=== PATIENT | male | born 1940 | race Caucasian/White ===

== ENCOUNTER 2016-07-30 08:05 | Outpatient (CLI) | payer MEDICARE, OTHER | END 2016-07-30 08:06 | disposition home or self-care (01) | DX: I42.9 Cardiomyopathy, unspecified (principal); I51.7 Cardiomegaly ==

== ENCOUNTER 2016-08-27 21:08 | Outpatient (CLI) | payer MEDICARE, OTHER | END 2016-08-27 21:09 | disposition critical access hospital (66) | DX: R53.1 Weakness (principal); R47.9 Unspecified speech disturbances; R26.81 Unsteadiness on feet | CPT/HCPCS: A0425; A0429 ==

== ENCOUNTER 2016-08-27 21:23 | Emergency (ER) | payer MEDICARE, OTHER ==
--- NOTE | 2016-08-27 21:23 | ED Physician Documentation ---
PD HPI FOCAL NEURO - Stated complaint Stated Complaint: POSS STROKE - History obtained from History obtained from: Patient, Family, EMS - History of Present Illness Timing - onset: Enter time (20:45), Today Timing - details: Abrupt onset Severity of deficit: Moderate Associated symptoms: No: Headache, Nausea / vomiting, Seizure, Syncope, Fall, Head injury, Chest pain, Neck pain, Back pain, Fever Contributing factors: negative: Anticoagulated, Vascular dz, Atrial fibrillation Baseline status: positive: A&OX3, ambulatory, indep Similar symptoms before: Has not had sx before Recently seen: Not recently seen - Additional information Additional information: At approximately 8:45 PM tonight, patient came back into his house from the garage and told his he was having difficulty walking. She found that he was very unsteady on his feet and had to be helped to a chair. She also noted his speech seemed garbled. Approximately 5-10 minutes earlier, he had gone into the garage without any such problems (per both his patient and his , who saw him leave the house to go into the garage). Medics report that patient was indeed very unsteady and that he needed significant assistance just getting up and onto the stretcher. Review of Systems Constitutional: reports: Reviewed and negative Eyes: reports: Reviewed and negative Ears: reports: Reviewed and negative Nose: reports: Reviewed and negative Throat: reports: Reviewed and negative Cardiac: reports: Reviewed and negative Respiratory: reports: Reviewed and negative GI: reports: Reviewed and negative : reports: Reviewed and negative Skin: reports: Reviewed and negative Musculoskeletal: reports: Reviewed and negative Neurologic: reports: Generalized weakness, Difficulty speaking. denies: Focal weakness, Numbness, Near syncope, Syncope, Confused, Headache, Head injury, LOC PD PAST MEDICAL HISTORY - Past Medical History Past Medical History: Yes Other Past Medical History: throat cancer - Present Medications Home Medications: Ambulatory Orders Medication Instructions Recorded Confirmed Aspirin 81 mg ORAL DAILY 08/27/16 08/27/16 Cholecalciferol (Vitamin D3) 1,000 units ORAL DAILY 08/27/16 08/27/16 [Vitamin D3] - Allergies Allergies/Adverse Reactions: Allergies Allergy/AdvReac Type Severity Reaction Status Date / Time Penicillins Allergy Unknown Verified 08/27/16 21:28 - Living Situation Living Situation: reports: With spouse/s.o. Living Arrangement: reports: At home - Social History Does the pt smoke?: No PD ED PE NORMAL - Vitals Vital signs reviewed: Yes - General General: Alert and oriented X 3, No acute distress, Well developed/nourished - HEENT HEENT: PERRL, EOMI, Moist mucous membranes - Neck Neck: Supple, no meningeal sign - Cardiac Cardiac: RRR, No murmur, No gallop, No rub - Respiratory Respiratory: No respiratory distress, Clear bilaterally - Abdomen Abdomen: Soft, Non tender - Derm Derm: Normal color, Warm and dry - Extremities Extremities: No edema - Neuro Neuro: Alert and oriented X 3, No sensory deficit, Other (visual mattson: right upper field cut/deficit. mild ataxia (difficulty with right hand [id number]) . 4/5 RUE strength (RUE drift). mild expressive aphasia (cannot describe anything about the picture (NIHSS scale), even after I prompt him with the example of "the sink is overflowing". He also has difficulty in naming most of the objects individually pictured, such as calling the hammock a "picture swing " and cannot name most of the other objects). ) GCS Score: 15 NIHSS - Time Time: 21:43 - Level of Consciousness Level of consciousness: (0) Alert, Keenly responsive LOC Questions: (0) Answers both Q's correct LOC Commands: (0) Performs both correctly - Gaze Best Gaze: (0) Normal - Visual Visual: (1) Partial hemianopia - Facial Palsy Facial Palsy: (0) Normal, symmetrical movement - Motor Arms (both separate) Motor Arm (right): (1) Drift Motor Arm (left): (0) No drift - Motor Legs (both separate) Motor Leg (right): (0) No drift Motor Leg (left): (0) No drift - Limb Ataxia Limb Ataxia: (1) Present in 1 limb - Sensory Sensory: (0) Normal - Best Language Best Language: (1) [id number] - Dysarthria Dysarthria: (0) Normal - Extinction and Inattention (formally neg Extinction and inattention: (0) No abnormality - Total Score/Results Total Score/Result: 4 Results - Vitals Vitals: Vital Signs - 24 hr 08/27/16 08/27/16 08/27/16 21:23 21:55 22:08 Temperature 36 C L Heart Rate 84 85 83 Respiratory 20 20 20 Rate Blood Pressure 185/115 H 189/93 H 182/90 H O2 Saturation 98 98 97 08/27/16 08/27/16 08/27/16 22:35 22:38 22:51 Temperature Heart Rate 80 71 72 Respiratory 18 20 20 Rate Blood Pressure 191/84 H 160/79 H 175/84 H O2 Saturation 96 96 95 Oxygen O2 Source Room air - Labs Labs: Laboratory Tests 08/27/16 08/27/16 08/27/16 21:24 21:24 21:24 WBC 8.8 RBC 4.30 L Hgb 12.7 L Hct 39.1 L MCV 91.0 MCH 29.5 MCHC 32.4 RDW 14.4 Plt Count 248 MPV 8.0 Neut # 6.0 Lymph # 1.9 [place] # 0.7 Eos # 0.1 Baso # 0.0 Absolute Nucleated RBC 0.00 Nucleated RBCs 0.0 PT 10.7 INR 0.9 APTT 25.4 Sodium 140 Potassium 3.7 Chloride 103 Carbon Dioxide 30 Anion Gap 7.0 BUN 25 H Creatinine 1.0 Estimated GFR (MDRD) 73 L Glucose 118 H Calcium 9.6 Troponin I 08/27/16 21:24 WBC RBC Hgb Hct MCV MCH MCHC RDW Plt Count MPV Neut # Lymph # [place] # Eos # Baso # Absolute Nucleated RBC Nucleated RBCs PT INR APTT Sodium Potassium Chloride Carbon Dioxide Anion Gap BUN Creatinine Estimated GFR (MDRD) Glucose Calcium Troponin I 0.04 - Rads (name of study) CT head Radiology: Prelim report reviewed, See rad report PD MEDICAL DECISION MAKING - ED course Complexity details: reviewed results, re-evaluated patient, considered differential, d/w patient, d/w family, d/w sfdc consultant (D/W Dr. Wang ( neurology, [facility]); recommends medication to lower BP (I orderded labetalol), and agrees with tPA. She was consulted over the phone and subsequently she evaluated patient via telestroke system. ) - Critical Care Time(min): 45 Time Includes: Direct patient care, Review records, Reassess patient, Document care, Coordinate care, See progress note Data interpretation: See progress note Procedures included in critical care time: See progress note Procedures excluded from critical care time: See progress note - TPA CVA checklist Inclusion crititeria: positive: Sig neuro deficit, CT no bleed, Onset know < 4.5 hr Absolute contraindications: negative: SBP>185 DBP>110 s/p tx, CT shows bleed, CT shows major est CVA, Platelets <100K, PTT > 40, INR >1.7, Known bleeding disorder, Surgery/trauma < 15 days, Seizure at onset, Internal bleed < 22 days, Brain/spine surg < 3 m, Head trauma < 3 m, CVA < 3 months, Any hx ICH, Any hx brain aneurysm, Any hx brain AVM, Any hx brain tumor, Suspect SAH Relative contraindications: negative: Too severe (NIHSS>22), Too mild, Rapid improvement, Glusose <50 >400, Life expectancy < 1 yr, Severe comorbid illness, Bacterial endocarditis, Severe hepatic dz, Severe renal dz, Hemorrhagic eye condition, Septic thrombophlebitis, Infected AV shunt, On coumadin, Advanced age , Left heart thrombus Departure - Departure Disposition: 02 Transfer Acute Care Hosp Clinical Impression: Cerebrovascular accident (CVA) Qualifiers: CVA mechanism: unspecified Qualified Code(s): I63.9 - Cerebral infarction, unspecified Condition: Stable Discharge Date/Time: 08/27/16 23:44
[2016-08-27] MEDS ORDERED: ALTEPLASE IV STA (22:00)
[2016-08-27] MEDS ORDERED: ALTEPLASE 100 MG VIAL IV ONE (22:00)
[2016-08-27] MEDS ORDERED: WATER FOR INJECTION STERILE IV STA (22:00)
[2016-08-27] MEDS ORDERED: ALTEPLASE 100 MG in WATER FOR INJECTION,STERILE 100 ML IV STA (22:00)
[2016-08-27] MEDS ORDERED: ALTEPLASE 100 MG VIAL ONE (22:03)
--- NOTE | 2016-08-27 22:03 | CT Preliminary Report ---
Exam: CT Head W/O Stroke Protocol IMPRESSION: Generalized age-related cortical atrophic changes without evidence of acute intracranial abnormality. RADIA The above findings were discussed with Dr. Lambert by Dr. Yolanda Lo at 21:57 hrs on 08/27/16. SITE ID: [id number]
--- NOTE | 2016-08-27 22:06 | CT Report ---
EXAM: CT HEAD EXAM DATE: 08/27/2016 09:51 PM. CLINICAL HISTORY: Possible stroke.Ataxia, right sided drift, speech difficulties COMPARISON: None. TECHNIQUE: Multiaxial CT images were obtained from the foramen magnum to the vertex. IV contrast: Non e. Reformats: Coronal. In accordance with CT protocol optimization, one or more of the following dose reduction techniques w ere utilized for this exam: automated exposure control, adjustment of mA and/or KV based on patient s ize, or use of iterative reconstructive technique. FINDINGS: Parenchyma: No intraparenchymal hemorrhage. No evidence of mass, midline shift, or CT findings of acu te infarction. Owusu-white differentiation is distinct. Extraaxial Spaces: Normal for age. No subdural or epidural collections identified. Ventricles: The ventricles and cortical sulci are enlarged, consistent with age-related tissue loss. Sinuses: Mild fluid in the right mastoid air cells. Mild right maxillary sinus mucosal thickening, no t completely imaged. Mild bilateral frontal sinus mucosal thickening. Bones: No evidence of fracture or calvarial defect. Other: Diffuse chronic microangiopathic white matter changes are evident. IMPRESSION: Generalized age-related cortical atrophic changes without evidence of acute intracranial abnormality. RADIA The above findings were discussed with Dr. Lambert by Dr. Yolanda Lo at 21:57 hrs on 08/27/16. Referring Provider Line: [phone] SITE ID: [id number]
[2016-08-27 22:11] LABS: BASOPHILS % (AUTO) 0.4 %; EOSINOPHILS # (AUTO) 0.1 10^3/uL (0.0-0.7); EOSINOPHILS % (AUTO) 1.6 %; HCT - HEMATOCRIT 39.1 % (42.0-52.0); HGB - HEMOGLOBIN 12.7 g/dL (14.0-18.0); LYMPHOCYTES # (AUTO) 1.9 10^3/uL (1.5-3.5); LYMPHOCYTES % (AUTO) 21.3 %; MEAN CORPUSCULAR HEMOGLOBIN 29.5 pg (27.0-31.0); MEAN CORPUSCULAR HGB CONC 32.4 g/dL (32.0-36.0); MONOCYTES # (AUTO) 0.7 10^3/uL (0.0-1.0); MONOCYTES % (AUTO) 7.9 %; NEUTROPHILS % (AUTO) 68.8 %; RED CELL DISTRIBUTION WIDTH 14.4 % (12.0-15.0); UNCORRECTED WHITE BLOOD COUNT 8.8 x10^3/uL; WHITE BLOOD COUNT 8.8 x10^3/uL (4.8-10.8)
[2016-08-27 22:14] LABS: CALCIUM 9.6 mg/dL (8.5-10.3); POTASSIUM 3.7 mmol/L (3.5-5.0)
[2016-08-27 22:17] LABS: INR 0.9 (0.8-1.2); PT - PROTHROMBIN TIME 10.7 secs (9.9-12.6)
[2016-08-27] MEDS ORDERED: LABETALOL 20 MG/4 ML SYRINGE IVP ONE (22:23)
[2016-08-27] MEDS ORDERED: LABETALOL 20 MG/4 ML SYRINGE IVP STA (22:23)
[2016-08-27 22:24] LABS: PARTIAL THROMBOPLASTIN TIME 25.4 secs (24.9-33.3)
[2016-08-27 22:52] VITALS: BP 175/84
== END 2016-08-27 23:44 | disposition short-term general hospital (02) ==
LOC: EDUNIT# → ED 21:23
DX: I63.9 Cerebral infarction, unspecified (principal); R29.704 NIHSS score 4; Z79.82 Long term (current) use of aspirin
CPT/HCPCS: 36415; 70450; 80048; 84484; 85025; 85610; 85730; 93005; 93010; 96374; 99285; 99291; J2997; 99284

== ENCOUNTER 2016-09-18 09:54 | Outpatient (CLI) | payer MEDICARE, OTHER | END 2016-09-18 09:55 | disposition critical access hospital (66) | LOC: EMS 09:54 | PROVIDERS: ATTEND Surgery | DX: R41.82 Altered mental status, unspecified (principal) | CPT/HCPCS: A0425; A0429 ==

== ENCOUNTER 2016-09-18 10:14 | Emergency (ER) | payer MEDICARE, OTHER ==
--- NOTE | 2016-09-18 10:37 | ED Physician Documentation ---
History of Present Illness - Stated complaint Stated Complaint: POSS STROKE - Chief complaint Chief Complaint: Neuro - Additonal information Additional information: hx from pt 76 male had a CVA 08/27 txed with TPA and trasnferred to [facility] was doing well and only residual effect was blurred vision was in his usual health this AM - except did not eat in prep for lab draw went to PT, checked in 0815, rode the bike for 15 min, when he went to move on to the next exercise at 0830 it became apparent that he was upset and confused and could not understand how to do the therapy, was taken down from PT to PMD office where he was noted to have a right facial droop and some dec reflexes on the LLE pt denies REYES CP palp no on blood thinners ,was going to start pradaxa tomorrow 4 wk s/p TPA per ssx are much imporved from when he was at PMD office Review of Systems Constitutional: denies: Fever, Chills Eyes: denies: Loss of vision Ears: denies: Loss of hearing, Ear pain Cardiac: denies: Chest pain / pressure, Palpitations GI: denies: Abdominal Pain, Nausea, Vomiting Neurologic: reports: Focal weakness. denies: Generalized weakness, Numbness, Difficulty speaking, Seizure, Headache Endocrine: denies: Easy bruising / bleeding Immunocompromised: denies: Immunocompromised PD PAST MEDICAL HISTORY - Past Medical History Past Medical History: Yes GI: Other - Past Surgical History Past Surgical History: Yes - Present Medications Home Medications: Ambulatory Orders Medication Instructions Recorded Confirmed Aspirin 81 mg ORAL DAILY 08/27/16 09/18/16 Cholecalciferol (Vitamin D3) 1,000 units ORAL DAILY 08/27/16 09/18/16 [Vitamin D3] Atorvastatin Calcium 40 mg PO DAILY 09/18/16 09/18/16 Metoprolol Tartrate 12.5 ng PO BID 09/18/16 09/18/16 - Allergies Allergies/Adverse Reactions: Allergies Allergy/AdvReac Type Severity Reaction Status Date / Time Penicillins Allergy Unknown Verified 08/27/16 21:28 - Social History Does the pt smoke?: No Smoking Status: Never smoker Does the pt drink ETOH?: No Does the pt have substance abuse?: No - Immunizations Immunizations are current?: Yes - POLST Patient has POLST: Yes PD ED PE NORMAL - Vitals Vital signs reviewed: Yes - General General: Alert and oriented X 3 - HEENT HEENT: PERRL, EOMI - Neck Neck: Supple, no meningeal sign - Cardiac Cardiac: RRR - Respiratory Respiratory: No respiratory distress, Clear bilaterally - Abdomen Abdomen: Soft, Non tender - Neuro Neuro: Alert and oriented X 3, No sensory deficit, Normal speech. No: sales assistant entertainment and media 2-12 intact (slight drop right mouth), No motor deficit (facial) - Psych Psych: Other (frustrated) Results - Vitals Vitals: Vital Signs - 24 hr 09/18/16 09/18/16 10:16 10:58 Temperature 36.2 C L Heart Rate 54 L 51 L Respiratory 18 16 Rate Blood Pressure 143/96 H 156/51 H O2 Saturation 97 100 Oxygen O2 Source Room air - EKG (time done) 1053 Rate: Rate (enter#) (50) Rhythm: NSR [place]: Normal Intervals: Normal CO Ischemia: Non specific changes - Labs Labs: Laboratory Tests 09/18/16 09/18/16 09/18/16 10:22 10:22 10:22 WBC 5.9 RBC 4.57 L Hgb 13.7 L Hct 40.4 L MCV 88.5 MCH 30.0 MCHC 33.9 RDW 13.8 Plt Count 205 MPV 7.8 Neut # 3.9 Lymph # 1.3 L [place] # 0.5 Eos # 0.2 Baso # 0.0 Absolute Nucleated RBC 0.00 Nucleated RBCs 0.0 PT 12.0 INR 1.1 Sodium 138 Potassium 4.3 Chloride 101 Carbon Dioxide 29 Anion Gap 8.0 BUN 19 Creatinine 1.2 Estimated GFR (MDRD) 59 L Glucose 105 H Calcium 9.8 - Rads (name of study) [facility] Radiology: See rad report (no acute) PD MEDICAL DECISION MAKING - ED course ED course: recurrent CVA sx within a month of TPA now clearing spont d/w neuro at [facility] - pt did have a L occipital temporal CVA in August, he was found to have int a fib while at [facility], he had echo and vessel imaging done, per neuro if his sx are clearing and CT does not show a bleed or other acute process, pt can start pradaxa and be discharged Departure - Departure Disposition: 01 Home, Self Care Clinical Impression: TIA (transient ischemic attack) Qualifiers: Transient cerebral ischemia type: unspecified Qualified Code(s): G45.9 - Transient cerebral ischemic attack, unspecified Condition: Good Instructions: ED Transient Ischemic Attack, Dabigatran oral capsules Follow-Up: Leslie Bird PA-C [Primary Care Provider] - Comments: Thankfully the symptoms that you had this morning are much improved and the CT scan does not show any new problems I spoke with your neurologist at [facility] and he recommends that you start the pradaxa today but that since you have already had an extensive work up for the causes of strokes, you do not need to be admitted to the hospital again. Please follow up with your PMD for a recheck next week and your neruology team as planned Return if worse in any way. Please carefully read the information I provided about being on pradaxa Also please follow up with your PMD about your blood pressure - it was high today Discharge Date/Time: 09/18/16 11:20 NIHSS - Time Time: 10:20 - Level of Consciousness Level of consciousness: (0) Alert, Keenly responsive LOC Questions: (0) Answers both Q's correct LOC Commands: (0) Performs both correctly - Gaze Best Gaze: (0) Normal - Visual Visual: (0) No loss - Facial Palsy Facial Palsy: (1) Minor paralysis - Motor Arms (both separate) Motor Arm (right): (0) No drift Motor Arm (left): (0) No drift - Motor Legs (both separate) Motor Leg (right): (0) No drift Motor Leg (left): (0) No drift - Limb Ataxia Limb Ataxia: (0) Absent - Sensory Sensory: (0) Normal - Best Language Best Language: (0) No aphasia - Dysarthria Dysarthria: (0) Normal - Extinction and Inattention (formally neg Extinction and inattention: (0) No abnormality - Total Score/Results Total Score/Result: 1
[2016-09-18 10:51] LABS: BASOPHILS % (AUTO) 0.7 %; EOSINOPHILS # (AUTO) 0.2 10^3/uL (0.0-0.7); EOSINOPHILS % (AUTO) 3.6 %; HCT - HEMATOCRIT 40.4 % (42.0-52.0); HGB - HEMOGLOBIN 13.7 g/dL (14.0-18.0); LYMPHOCYTES # (AUTO) 1.3 10^3/uL (1.5-3.5); MEAN CORPUSCULAR HGB CONC 33.9 g/dL (32.0-36.0); MEAN CORPUSCULAR VOLUME 88.5 fL (80.0-94.0); MEAN PLATELET VOLUME 7.8 fL (7.4-11.4); MONOCYTES # (AUTO) 0.5 10^3/uL (0.0-1.0); MONOCYTES % (AUTO) 7.9 %; NEUTROPHILS # (AUTO) 3.9 10^3/uL (1.5-6.6); NEUTROPHILS % (AUTO) 65.8 %; RED BLOOD COUNT 4.57 10^6/uL (4.70-6.10); RED CELL DISTRIBUTION WIDTH 13.8 % (12.0-15.0); UNCORRECTED WHITE BLOOD COUNT 5.9 x10^3/uL; WHITE BLOOD COUNT 5.9 x10^3/uL (4.8-10.8)
[2016-09-18 10:52] LABS: CALCIUM 9.8 mg/dL (8.5-10.3); CREATININE 1.2 mg/dL (0.6-1.2); POTASSIUM 4.3 mmol/L (3.5-5.0)
[2016-09-18 11:00] VITALS: BP 156/51
[2016-09-18 11:05] LABS: INR 1.1 (0.8-1.2)
--- NOTE | 2016-09-18 11:06 | CT Report ---
EXAM: CT HEAD EXAM DATE: 09/18/2016 10:41 AM. CLINICAL HISTORY: Right facial droop 0830. Previous infarction by history. COMPARISON: 08/27/2016. TECHNIQUE: Multiaxial CT images were obtained from the foramen magnum to the vertex. IV contrast: Non e. Reformats: Coronal. In accordance with CT protocol optimization, one or more of the following dose reduction techniques w ere utilized for this exam: automated exposure control, adjustment of mA and/or KV based on patient s ize, or use of iterative reconstructive technique. FINDINGS: Parenchyma: No intraparenchymal hemorrhage. No evidence of mass, midline shift, or CT findings of acu te infarction. Subtle hypoattenuation in left occipital lobe best seen on axial image 12 compatible w ith subacute lesion. Owusu-white differentiation is distinct. Extraaxial Spaces: Normal for age. No subdural or epidural collections. Ventricles: The ventricles and cortical sulci are enlarged, consistent with age-related tissue loss. Sinuses: Small opacified right maxillary sinus similar to previous exam. Otherwise unremarkable. Bones: Unremarkable. Other: Mild chronic microangiopathic white matter changes. Calcifications of intracranial carotid art eries. IMPRESSION: Chronic findings, subacute left occipital infarction. No acute disease. RADIA The call report notification system was initiated by Dr. Vikram Mayes at 10:56 hrs on 09/18/16. The above findings were discussed with Dr. Francisco by Dr. Vikram Mayes at 11:02 hrs on 09/18/16. Referring Provider Line: [phone] SITE ID: [id number]
[2016-09-18] MEDS ORDERED: DABIGATRAN 75 MG CAPSULE PO STA (11:09)
== END 2016-09-18 11:20 | disposition home or self-care (01) ==
LOC: EDUNIT# → ED 10:14
DX: G45.9 Transient cerebral ischemic attack, unspecified (principal); Z86.73 Personal history of transient ischemic attack (TIA), and cerebral infarction without residual deficits
CPT/HCPCS: 36415; 70450; 80048; 85025; 85610; 93005; 93010; 99284; A9270

== ENCOUNTER 2016-11-15 02:06 | Outpatient (CLI) | payer MEDICARE, OTHER | END 2016-11-15 02:07 | disposition EMS.NT | LOC: EMS 02:06 | PROVIDERS: ATTEND Surgery | DX: Z03.89 Encounter for observation for other suspected diseases and conditions ruled out (principal) ==

== ENCOUNTER 2016-11-19 09:30 | Outpatient (CLI) | payer MEDICARE, OTHER | END 2016-11-19 09:31 | disposition home or self-care (01) | LOC: DI 09:30 | PROVIDERS: ATTEND Physician Assistant Medical | DX: I48.0 Paroxysmal atrial fibrillation (principal); I51.7 Cardiomegaly; I42.9 Cardiomyopathy, unspecified; I10 Essential (primary) hypertension; E78.5 Hyperlipidemia, unspecified | CPT/HCPCS: 93306 ==

== ENCOUNTER 2017-02-16 08:00 | Outpatient (CLI) | payer MEDICARE, OTHER | END 2017-02-16 08:01 | disposition home or self-care (01) | LOC: LAB.WCP 08:00 | PROVIDERS: ATTEND Physician Assistant Medical | DX: T14.8XXA Other injury of unspecified body region, initial encounter (principal) | CPT/HCPCS: 87070; 87205 ==

== ENCOUNTER 2017-02-26 08:00 | Outpatient (CLI) | payer MEDICARE, OTHER ==
[2017-02-26 12:59] LABS: BASOPHILS % (AUTO) 0.5 %; EOSINOPHILS # (AUTO) 0.2 10^3/uL (0.0-0.7); EOSINOPHILS % (AUTO) 3.2 %; HCT - HEMATOCRIT 36.2 % (42.0-52.0); HGB - HEMOGLOBIN 12.1 g/dL (14.0-18.0); LYMPHOCYTES # (AUTO) 1.5 10^3/uL (1.5-3.5); MEAN CORPUSCULAR HEMOGLOBIN 29.7 pg (27.0-31.0); MEAN CORPUSCULAR HGB CONC 33.5 g/dL (32.0-36.0); MEAN CORPUSCULAR VOLUME 88.7 fL (80.0-94.0); MEAN PLATELET VOLUME 7.3 fL (7.4-11.4); MONOCYTES # (AUTO) 0.4 10^3/uL (0.0-1.0); MONOCYTES % (AUTO) 7.3 %; NEUTROPHILS # (AUTO) 3.6 10^3/uL (1.5-6.6); RED BLOOD COUNT 4.08 10^6/uL (4.70-6.10); RED CELL DISTRIBUTION WIDTH 14.2 % (12.0-15.0); UNCORRECTED WHITE BLOOD COUNT 5.7 x10^3/uL; WHITE BLOOD COUNT 5.7 x10^3/uL (4.8-10.8)
[2017-02-26 13:33] LABS: ALBUMIN/GLOBULIN RATIO 1.2 (1.0-2.2); BILIRUBIN,TOTAL 0.5 mg/dL (0.2-1.0); BUN - BLOOD UREA NITROGEN 21 mg/dL (6-20); CALCIUM 9.5 mg/dL (8.5-10.3); CARBON DIOXIDE - CO2 30 mmol/L (21-32); CHLORIDE 101 mmol/L (101-111); CHOL/HDL RATIO 2.2 (<5.0); CHOLESTEROL 141 mg/dL; GFR - MDRD 73 (>89); GLUCOSE 89 mg/dL (70-100); HDL CHOLESTEROL 64 mg/dL; POTASSIUM 4.5 mmol/L (3.5-5.0); SODIUM 137 mmol/L (135-145); TOTAL PROTEIN 7.4 g/dL (6.7-8.2); TRIGLYCERIDES 62 mg/dL; VLDL CHOLESTEROL 12 mg/dL
== END 2017-02-26 08:01 | disposition home or self-care (01) ==
LOC: LAB.WCP 08:00
PROVIDERS: ATTEND Internal Medicine Cardiovascular Disease
DX: I48.0 Paroxysmal atrial fibrillation (principal); I10 Essential (primary) hypertension; Z86.73 Personal history of transient ischemic attack (TIA), and cerebral infarction without residual deficits; Z79.01 Long term (current) use of anticoagulants; E78.5 Hyperlipidemia, unspecified; I77.9 Disorder of arteries and arterioles, unspecified; I49.3 Ventricular premature depolarization
CPT/HCPCS: 36415; 80053; 80061; 83735; 85025

== ENCOUNTER 2017-04-27 13:13 | Outpatient (CLI) | payer MEDICARE, OTHER ==
[2017-04-27 19:01] LABS: BASOPHILS % (AUTO) 0.8 %; EOSINOPHILS # (AUTO) 0.1 10^3/uL (0.0-0.7); EOSINOPHILS % (AUTO) 2.3 %; HGB - HEMOGLOBIN 12.3 g/dL (14.0-18.0); LYMPHOCYTES # (AUTO) 1.4 10^3/uL (1.5-3.5); LYMPHOCYTES % (AUTO) 23.6 %; MEAN CORPUSCULAR HEMOGLOBIN 29.5 pg (27.0-31.0); MEAN CORPUSCULAR VOLUME 89.7 fL (80.0-94.0); MEAN PLATELET VOLUME 7.8 fL (7.4-11.4); MONOCYTES # (AUTO) 0.5 10^3/uL (0.0-1.0); MONOCYTES % (AUTO) 7.7 %; NEUTROPHILS # (AUTO) 3.9 10^3/uL (1.5-6.6); NEUTROPHILS % (AUTO) 65.6 %; PLT - PLATELET COUNT 281 10^3/uL (130-450); RED BLOOD COUNT 4.16 10^6/uL (4.70-6.10); RED CELL DISTRIBUTION WIDTH 14.1 % (12.0-15.0); WHITE BLOOD COUNT 5.9 x10^3/uL (4.8-10.8)
== END 2017-04-27 13:14 | disposition home or self-care (01) ==
LOC: LAB.WCP 13:13
PROVIDERS: ATTEND Physician Assistant Medical
DX: E03.9 Hypothyroidism, unspecified (principal); D64.9 Anemia, unspecified
CPT/HCPCS: 36415; 84443; 85025

== ENCOUNTER 2017-05-07 08:11 | Outpatient (CLI) | payer MEDICARE, OTHER | END 2017-05-07 08:12 | disposition critical access hospital (66) | LOC: EMS 08:11 | PROVIDERS: ATTEND Surgery | DX: R42 Dizziness and giddiness (principal); R51 Headache; R53.1 Weakness | CPT/HCPCS: A0425; A0429 ==

== ENCOUNTER 2017-05-07 08:28 | Emergency (ER) | payer MEDICARE, OTHER ==
[2017-05-07] MEDS ORDERED: SODIUM CHLORIDE 0.9% 1,000 ML IV ONE (08:41)
[2017-05-07 08:58] LABS: BASOPHILS % (AUTO) 0.8 %; EOSINOPHILS # (AUTO) 0.2 10^3/uL (0.0-0.7); EOSINOPHILS % (AUTO) 3.8 %; HGB - HEMOGLOBIN 11.6 g/dL (14.0-18.0); LYMPHOCYTES # (AUTO) 1.2 10^3/uL (1.5-3.5); LYMPHOCYTES % (AUTO) 23.2 %; MEAN CORPUSCULAR HEMOGLOBIN 29.8 pg (27.0-31.0); MEAN CORPUSCULAR HGB CONC 33.4 g/dL (32.0-36.0); MEAN CORPUSCULAR VOLUME 89.1 fL (80.0-94.0); MONOCYTES # (AUTO) 0.4 10^3/uL (0.0-1.0); MONOCYTES % (AUTO) 8.4 %; NEUTROPHILS # (AUTO) 3.4 10^3/uL (1.5-6.6); NEUTROPHILS % (AUTO) 63.8 %; PLT - PLATELET COUNT 214 10^3/uL (130-450); RED BLOOD COUNT 3.89 10^6/uL (4.70-6.10); RED CELL DISTRIBUTION WIDTH 14.2 % (12.0-15.0); WHITE BLOOD COUNT 5.4 x10^3/uL (4.8-10.8)
--- NOTE | 2017-05-07 09:07 | ED Physician Documentation ---
History of Present Illness - Stated complaint Stated Complaint: WEAK/DIZZY - Chief complaint Chief Complaint: General - History obtained from History obtained from: Patient, Family (Spouse) - History of Present Illness Timing: Today Pain level max: 0 Pain level now: 0 Associated symptoms: Dizzy, lightheaded, headache. 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 He felt lightheaded, and laid down on the floor to avoid falling. He reports headache, and states he "feels terrible." He denies chest pain, shortness of breath, nausea, or vomiting. He has a history of similar dizzy spells since his CVA, but usually they pass in a shorter duration of time. In addition, his past medical history is significant for throat cancer that was diagnosed in 2006, for which he is status post surgery, chemotherapy, and radiation therapy. He is status post carotid endarterectomy. His symptoms this morning were witnessed by his who accompanies him in the emergency department, and who helps provide history. Review of Systems Constitutional: denies: Fever Eyes: denies: Decreased vision Ears: denies: Tinnitus/ringing Nose: denies: Congestion Throat: denies: Sore throat Cardiac: denies: Chest pain / pressure, Palpitations Respiratory: denies: Dyspnea, Cough GI: denies: Abdominal Pain, Nausea, Vomiting : denies: Dysuria Skin: denies: Rash Musculoskeletal: denies: Neck pain, Back pain, Extremity pain Neurologic: reports: Generalized weakness, Focal weakness (Residual right facial droop since CVA.), Headache. denies: Altered mental status, LOC PD PAST MEDICAL HISTORY - Past Medical History Past Medical History: Yes Cardiovascular: Peripheral Vascular Disease, Atrial fibrillation Neuro: CVA GI: Other Other Past Medical History: Throat CA, dx'd 2006. - Past Surgical History Past Surgical History: Yes Cardiovascular: Other (S/P CEA) - Present Medications Home Medications: Ambulatory Orders Medication Instructions Recorded Confirmed Cholecalciferol (Vitamin D3) 1,000 units ORAL DAILY 08/27/16 05/07/17 [Vitamin D3] Atorvastatin Calcium 40 mg PO DAILY 09/18/16 05/07/17 Metoprolol Tartrate 12.5 ng PO BID 09/18/16 05/07/17 Dabigatran Etexilate Mesylate 110 mg PO BID 05/07/17 05/07/17 [Pradaxa] Meclizine [Antivert] 25 mg PO Q6H #10 tablet 05/07/17 - Allergies Allergies/Adverse Reactions: Allergies Allergy/AdvReac Type Severity Reaction Status Date / Time Penicillins Allergy Unknown Verified 08/27/16 21:28 - Living Situation Living Situation: reports: With spouse/s.o. Living Arrangement: reports: At home - Social History Does the pt smoke?: No Smoking Status: Never smoker Does the pt drink ETOH?: No Does the pt have substance abuse?: No - Immunizations Immunizations are current?: Yes - POLST Patient has POLST: Yes PD ED PE NORMAL - Vitals Vital signs reviewed: Yes (Initially hypertensive) - General General: Alert and oriented X 3, Well developed/nourished - HEENT HEENT: Atraumatic, PERRL, EOMI, Pharynx benign - Neck Neck: Supple, no meningeal sign, No bony TTP, No adenopathy, No JVD - Cardiac Cardiac: RRR, No murmur - Respiratory Respiratory: No respiratory distress, Clear bilaterally - Abdomen Abdomen: Soft, Non tender - Back Back: No spinal TTP - Derm Derm: No rash - Extremities Extremities: No edema, No calf tenderness / cord - Neuro Neuro: Alert and oriented X 3, Normal speech, Other (Slight right facial droop. Generalized weakness with no acute motor or sensory deficit of extremities. No drift.) Eye Opening: Spontaneous Motor: Obeys Commands Verbal: Oriented GCS Score: 15 Results - Vitals Vitals: Oxygen O2 Source Room air - EKG (time done) 08:35 Rate: Rate (enter#) (55) Rhythm: NSR [place]: Normal Intervals: Normal [place] QRS: Normal Ischemia: Normal ST segments Compare to prior EKG: Changed from prior EKG (Compared to previous EKG of 2016, LVH with repolarization no longer present.) Computer interpretation: Agree with computer - Labs Labs: Laboratory Tests 05/07/17 05/07/17 05/07/17 08:32 08:40 08:40 WBC 5.4 RBC 3.89 L Hgb 11.6 L Hct 34.7 L MCV 89.1 MCH 29.8 MCHC 33.4 RDW 14.2 Plt Count 214 MPV 7.0 L Neut # 3.4 Lymph # 1.2 L [place] # 0.4 Eos # 0.2 Baso # 0.0 Absolute Nucleated RBC 0.00 Nucleated RBC % 0.0 Sodium 138 Potassium 4.2 Chloride 100 L Carbon Dioxide 28 Anion Gap 10.0 BUN 19 Creatinine 1.0 Estimated GFR (MDRD) 73 L Glucose 106 H POC Whole Bld Glucose 109 H Lactic Acid Calcium 9.4 Total Bilirubin 0.4 AST 20 ALT 15 Alkaline Phosphatase 45 Troponin I Total Protein 7.1 Albumin 3.9 Globulin 3.2 Albumin/Globulin Ratio 1.2 Lipase 35 Urine Color Urine Clarity Urine pH Ur Specific [place] Urine Protein Urine Glucose (UA) Urine Ketones Urine Occult Blood Urine Nitrite Urine Bilirubin Urine Urobilinogen Ur Leukocyte Esterase Ur Microscopic Review Urine Culture Comments 05/07/17 05/07/17 05/07/17 08:40 08:47 10:55 WBC RBC Hgb Hct MCV MCH MCHC RDW Plt Count MPV Neut # Lymph # [place] # Eos # Baso # Absolute Nucleated RBC Nucleated RBC % Sodium Potassium Chloride Carbon Dioxide Anion Gap BUN Creatinine Estimated GFR (MDRD) Glucose POC Whole Bld Glucose Lactic Acid 1.0 Calcium Total Bilirubin AST ALT Alkaline Phosphatase Troponin I < 0.04 Total Protein Albumin Globulin Albumin/Globulin Ratio Lipase Urine Color DARK YELLOW Urine Clarity CLEAR Urine pH 7.0 Ur Specific [place] 1.015 Urine Protein NEGATIVE Urine Glucose (UA) NEGATIVE Urine Ketones NEGATIVE Urine Occult Blood NEGATIVE Urine Nitrite NEGATIVE Urine Bilirubin NEGATIVE Urine Urobilinogen 0.2 (NORMAL) Ur Leukocyte Esterase NEGATIVE Ur Microscopic Review NOT INDICATED Urine Culture Comments NOT INDICATED - Rads (name of study) head CT Radiology: Prelim report reviewed, EMP read contemporaneously, See rad report ( Moderate sized area of encephalomalacia in the left occipital region, consistent with prior infarct. No acute intracranial process.) PD MEDICAL DECISION MAKING - ED course Complexity details: reviewed old records, reviewed results, re-evaluated patient , considered differential, d/w patient, d/w family ED course: The patient's presentation is significant for dizziness, the etiology of which is uncertain at this time. He does not have evidence of an acute CVA, and CT scan of his brain reveals evidence of previous CVA with encephalomalacia, without acute findings. His symptoms do not appear to be caused by cardiac event, and there is no evidence to suggest seizure. Electrolytes and glucose are normal. There is no evidence to suggest infectious etiology. Treatment in the emergency department included administration of normal saline 1 L IV, and meclizine 25 mg orally. Following this treatment he felt subjectively much improved, and demonstrated ability to ambulate with the assistance of his cane. I discussed with him and his family the results of his workup, symptomatically treatment and outpatient follow-up, as well as potentially worrisome signs or symptoms that should prompt reevaluation in the emergency department. He is being discharged with prescription for meclizine. Departure - Departure Disposition: 01 Home, Self Care Clinical Impression: Dizziness, History of CVA (cerebrovascular accident) without residual deficits Condition: Stable Instructions: ED Dizziness [facility]O Follow-Up: Leslie Bird PA-C [Primary Care Provider] - Prescriptions: Meclizine [Antivert] 25 mg PO Q6H #10 tablet Comments: Drink plenty of fluids. You can use meclizine as prescribed if needed for dizziness. Follow up with your primary physician within 2 weeks. Call to schedule appointment. Return to the emergency department if you develop increasing dizziness, increasing headache, difficulty breathing, or otherwise worsening symptoms. Discharge Date/Time: 05/07/17 14:32
[2017-05-07 09:12] LABS: ALBUMIN 3.9 g/dL (3.2-5.5); ALBUMIN/GLOBULIN RATIO 1.2 (1.0-2.2); BILIRUBIN,TOTAL 0.4 mg/dL (0.2-1.0); CALCIUM 9.4 mg/dL (8.5-10.3); TOTAL PROTEIN 7.1 g/dL (6.7-8.2)
--- NOTE | 2017-05-07 09:41 | CT Report ---
EXAM: CT HEAD WITHOUT CONTRAST EXAM DATE: 05/07/2017 09:06 AM. CLINICAL HISTORY: New onset of dizziness, with headache, in a 77-year-old male with history of CVA. COMPARISON: 09/18/2016 and 08/27/2016. TECHNIQUE: Multiaxial CT images were obtained from the foramen magnum to the vertex on an emergent ba sis. Reformats: Coronal. IV contrast: None. In accordance with CT protocol optimization, one or more of the following dose reduction techniques w ere utilized for this exam: automated exposure control, adjustment of mA and/or KV based on patient s ize, or use of iterative reconstructive technique. FINDINGS: Parenchyma: Mild generalized age-appropriate cerebral and cerebellar atrophy, similar to prior study. New moderate-sized area of encephalomalacia in the left occipital region 4.3 cm in AP diameter by 3 cm in transverse diameter, consistent with area of previous infarction. No intraparenchymal hemorrhag e. No evidence of mass, midline shift, or CT findings of acute infarction. [place]-white differentiation is distinct. Diffuse mild chronic microangiopathic white matter changes are evident. Extraaxial Spaces: Normal for age. No subdural or epidural collections identified. Ventricles: The ventricles and cortical sulci are mildly enlarged, consistent with age-related tissue loss, stable. Sinuses and orbits: Changes of chronic right maxillary sinusitis with decreased size of the right max illary sinus, similar to prior studies. Minimal areas of patchy mucoperiosteal thickening in the ethm oid air cells. Remaining paranasal sinuses are clear. No air-fluid levels. Bones: No evidence of fracture or calvarial defect. Other: None. IMPRESSION: Moderate-sized area of encephalomalacia in the left occipital region consistent with prio r infarct. No acute intracranial process. Changes of chronic right maxillary sinusitis, stable. [facility] Referring Provider Line: [phone] SITE ID: [id number]
[2017-05-07 11:17] LABS: BILIRUBIN,URINE NEGATIVE (NEGATIVE); GLUCOSE, URINE (UA) NEGATIVE (NEGATIVE); KETONES,URINE (UA) NEGATIVE (NEGATIVE); LEUKOCYTE ESTERASE, URINE NEGATIVE (NEGATIVE); NITRITE,URINE NEGATIVE (NEGATIVE); OCCULT BLOOD,URINE NEGATIVE (NEGATIVE); PROTEIN,URINE NEGATIVE (NEGATIVE); UROBILINOGEN,URINE 0.2 (NORMAL) E.U./dL (NORMAL)
[2017-05-07 11:19] LABS: CLARITY,URINE CLEAR (CLEAR)
[2017-05-07] MEDS ORDERED: MECLIZINE 12.5 MG TABLET PO STA (13:29)
[2017-05-07 14:11] VITALS: BP 121/91
== END 2017-05-07 14:32 | disposition home or self-care (01) ==
LOC: EDUNIT# → ED 08:28
DX: R42 Dizziness and giddiness (principal); Z86.73 Personal history of transient ischemic attack (TIA), and cerebral infarction without residual deficits; I48.91 Unspecified atrial fibrillation; Z85.01 Personal history of malignant neoplasm of esophagus; I73.9 Peripheral vascular disease, unspecified
CPT/HCPCS: 36415; 70450; 80053; 81003; 83605; 83690; 84484; 85025; 93005; 96360; 96361; 99284; A9270; 81001; 87086

== ENCOUNTER 2017-06-07 11:16 | Outpatient (CLI) | payer MEDICARE, OTHER ==
--- NOTE | 2017-06-07 12:24 | CT Report ---
CT BRAIN WITHOUT CONTRAST: 06/07/2017 CLINICAL INDICATION: Posttraumatic headache. TECHNIQUE: Axial CT images of the brain were obtained without intravenous contrast. COMPARISON: 05/07/2017. FINDINGS: Previously noted left occipital encephalomalacia is stable. There is no evidence of acute hemorrhage, mass effect, or midline shift. The basilar cisterns are patent. The visualized orbital contents are unremarkable. Chronic right maxillary sinus disease is stable. IMPRESSION: NO EVIDENCE OF ACUTE HEMORRHAGE OR MASS EFFECT. STABLE REMOTE LEFT OCCIPITAL INFARCTION. NO SIGNIFICANT INTERVAL CHANGE FROM 05/07/2017. In accordance with CT protocol optimization, one or more of the following dose reduction techniques were utilized for this exam: automated exposure control, adjustment of mA and/or KV based on patient size, or use of iterative reconstructive technique. TD: 06/07/2017 12:23
== END 2017-06-07 11:17 | disposition home or self-care (01) ==
LOC: DI 11:16
PROVIDERS: ATTEND Family Medicine
DX: G44.309 Post-traumatic headache, unspecified, not intractable (principal); Z86.73 Personal history of transient ischemic attack (TIA), and cerebral infarction without residual deficits
CPT/HCPCS: 70450

== ENCOUNTER 2017-09-10 21:28 | Outpatient (CLI) | payer MEDICARE, OTHER | END 2017-09-10 21:29 | disposition critical access hospital (66) | LOC: EMS 21:28 | PROVIDERS: ATTEND Surgery | DX: R07.89 Other chest pain (principal); X58.XXXA Exposure to other specified factors, initial encounter; Y92.009 Unspecified place in unspecified non-institutional (private) residence as the place of occurrence of the external cause | CPT/HCPCS: A0425; A0429 ==

== ENCOUNTER 2017-09-10 21:46 | Inpatient (IN) | payer MEDICARE, OTHER ==
--- NOTE | 2017-09-10 21:48 | ED Physician Documentation ---
PD HPI HEENT - Stated complaint Stated Complaint: THROAT BLOCKED - History obtained from History obtained from: Patient, EMS - History of Present Illness Timing - onset: How many minutes ago (30), Today Timing - duration: Minutes Timing - details: Abrupt onset (he was eating peanut butter sandwich and choked on it. Family members did the Heimlich but the patient actually passed out before he then vomited up the food with Heimlich maneuvers on the ground. He then awoke soon after. EMS arrival noted him to have a low oxygen levels in the upper 80s-90%. This improved with nasal cannula. He became fully alert and conversant en route. He did not have any vomiting en route.) Location: Throat (choking episode.) Associated symptoms: Other (The patient and family say he was feeling well earlier in the day in the last few days without any cough or cold symptoms. He has not had any dyspnea today.). No: Fever, Cough Similar symptoms before: Other (His daughter says he had a brief choking episode last week for just minute or so.) Recently seen: Not recently seen Review of Systems Constitutional: denies: Fever, Chills Nose: denies: Rhinorrhea / runny nose, Congestion Throat: denies: Sore throat Cardiac: denies: Chest pain / pressure Respiratory: denies: Cough GI: denies: Vomiting, Diarrhea Skin: denies: Rash, Lesions Musculoskeletal: denies: Extremity swelling PD PAST MEDICAL HISTORY - Past Medical History Cardiovascular: None Respiratory: None Neuro: None Endocrine/Autoimmune: None - Present Medications Home Medications: Ambulatory Orders Medication Instructions Recorded Confirmed Cholecalciferol (Vitamin D3) 1,000 units ORAL DAILY 08/27/16 05/07/17 [Vitamin D3] Atorvastatin Calcium 40 mg PO DAILY 09/18/16 05/07/17 Metoprolol Tartrate 12.5 ng PO BID 09/18/16 05/07/17 Dabigatran Etexilate Mesylate 110 mg PO BID 05/07/17 05/07/17 [Pradaxa] Meclizine [Antivert] 25 mg PO Q6H #10 tablet 05/07/17 - Allergies Allergies/Adverse Reactions: Allergies Allergy/AdvReac Type Severity Reaction Status Date / Time Penicillins Allergy Unknown Verified 08/27/16 21:28 - Family History Family history: reports: Non contributory PD ED PE NORMAL - Vitals Vital signs reviewed: Yes (sats 90% RA initially.) - General General: Alert and oriented X 3, Well developed/nourished, Other - HEENT HEENT: Atraumatic, Pharynx benign - Neck Neck: Supple, no meningeal sign, No adenopathy - Cardiac Cardiac: RRR, No murmur - Respiratory Respiratory: No respiratory distress, Other (mild chestwall tenderness sternal area and anterior chest. ). No: Clear bilaterally (some coarse sounds lower left. ) - Abdomen Abdomen: Soft, Non tender - Back Back: No CVA TTP - Derm Derm: Normal color, Warm and dry - Extremities Extremities: No deformity, No tenderness to palpate, Normal ROM s pain, No edema , No calf tenderness / cord - Neuro Neuro: Alert and oriented X 3, No motor deficit, Normal speech Eye Opening: Spontaneous Motor: Obeys Commands Verbal: Oriented GCS Score: 15 Results - Vitals Vitals: Vital Signs - 24 hr 09/10/17 09/10/17 09/10/17 21:51 22:30 22:35 Temperature 36.0 C L Heart Rate 142 H 135 H 120 H Respiratory 18 23 17 Rate Blood Pressure 136/93 H 142/103 H 121/68 O2 Saturation 90 L 96 98 09/10/17 09/10/17 22:56 23:16 Temperature Heart Rate 119 H 110 H Respiratory 14 15 Rate Blood Pressure 138/72 H 136/79 H O2 Saturation 100 99 Oxygen O2 Source Nasal cannula Oxygen Flow Rate 3 - EKG (time done) 21:55 Rate: Rate (enter#) (145) Rhythm: Atrial fibrillation [place]: Normal QRS: Normal Ischemia: Normal ST segments, Non specific changes. No: ST elevation c/w ischemia, ST depression - Labs Labs: Laboratory Tests 09/10/17 09/10/17 21:55 21:55 WBC 12.7 H RBC 4.15 L Hgb 11.7 L Hct 36.6 L MCV 88.2 MCH 28.2 MCHC 31.9 L RDW 14.1 Plt Count 274 MPV 6.7 L Neut # 8.3 H Lymph # 3.2 [place] # 0.8 Eos # 0.3 Baso # 0.1 Absolute Nucleated RBC 0.01 Nucleated RBC % 0.0 Sodium 135 Potassium 3.8 Chloride 100 L Carbon Dioxide 28 Anion Gap 7.0 BUN 25 H Creatinine 1.0 Estimated GFR (MDRD) 73 L Glucose 137 H Calcium 9.0 Magnesium 1.9 Total Bilirubin 0.6 AST 26 ALT 14 Alkaline Phosphatase 46 Total Protein 7.3 Albumin 3.8 Globulin 3.5 Albumin/Globulin Ratio 1.1 Lipase 42 - Rads (name of study) chest CT Radiology: Prelim report reviewed (no fractures nor acute injury. Significant infiltrate left lower lobe, likely aspiration.) PD MEDICAL DECISION MAKING - ED course Complexity details: reviewed results (apparent aspiration pneumonia/infiltrate left lower lobe (he had not had cough nor dyspnea prior to choking episode). Sas 90% RA but are good on just NC. He is not having labored breathing. Given neb to clear airways, steroids for inflammation, and will start abx. His atrial fib is slowing with IV metorprolol and is around 100 now. No noted fractures/ injuries on CT from the Heimlich/compressions done for the choking episode. ), re-evaluated patient, considered differential (aspiration concern after choking , and had Heimlich/compressions with some chest pain now, so eval for fractures. He is also in rapid atrial fib, presume stress response to the event. ) Departure - Departure Disposition: 66 [facility] DC/Xfer Clinical Impression: Chronic atrial fibrillation with rapid ventricular response, Choking episode, Hypoxia Aspiration pneumonia Qualifiers: Aspiration pneumonia type: due to vomit Laterality: left Lung location: lower lobe of lung Qualified Code(s): J69.0 - Pneumonitis due to inhalation of food and vomit Condition: Stable Record reviewed to determine appropriate education?: Yes
[2017-09-10] MEDS ORDERED: ACETAMINOPHEN 325 MG TABLET PO STA (21:52)
[2017-09-10 22:07] LABS: BASOPHILS # (AUTO) 0.1 10^3/uL (0.0-0.1); BASOPHILS % (AUTO) 0.5 %; EOSINOPHILS # (AUTO) 0.3 10^3/uL (0.0-0.7); EOSINOPHILS % (AUTO) 2.4 %; HGB - HEMOGLOBIN 11.7 g/dL (14.0-18.0); LYMPHOCYTES # (AUTO) 3.2 10^3/uL (1.5-3.5); LYMPHOCYTES % (AUTO) 25.2 %; MEAN CORPUSCULAR HEMOGLOBIN 28.2 pg (27.0-31.0); MEAN CORPUSCULAR HGB CONC 31.9 g/dL (32.0-36.0); MEAN CORPUSCULAR VOLUME 88.2 fL (80.0-94.0); MEAN PLATELET VOLUME 6.7 fL (7.4-11.4); MONOCYTES # (AUTO) 0.8 10^3/uL (0.0-1.0); MONOCYTES % (AUTO) 6.6 %; NEUTROPHILS # (AUTO) 8.3 10^3/uL (1.5-6.6); NEUTROPHILS % (AUTO) 65.3 %; PLT - PLATELET COUNT 274 10^3/uL (130-450); RED BLOOD COUNT 4.15 10^6/uL (4.70-6.10); RED CELL DISTRIBUTION WIDTH 14.1 % (12.0-15.0); WHITE BLOOD COUNT 12.7 x10^3/uL (4.8-10.8)
[2017-09-10] MEDS ORDERED: METOPROLOL 5 MG/5 ML VIAL IVP STA ×3 (22:09→23:15)
[2017-09-10] MEDS ORDERED: SODIUM CHLORIDE 0.9% 500 ML IV ONE (22:09)
[2017-09-10 22:34] LABS: ALBUMIN 3.8 g/dL (3.2-5.5); ALBUMIN/GLOBULIN RATIO 1.1 (1.0-2.2); BILIRUBIN,TOTAL 0.6 mg/dL (0.2-1.0); MAGNESIUM 1.9 mg/dL (1.7-2.8); TOTAL PROTEIN 7.3 g/dL (6.7-8.2)
--- NOTE | 2017-09-10 22:57 | CT Report ---
EXAM: CT CHEST EXAM DATE: 09/10/2017 10:28 PM. CLINICAL HISTORY: Choking episode and had chest compressions/Heimlic. COMPARISONS: 10/24/2007 chest x-ray. TECHNIQUE: Routine helical CT imaging was performed through the chest. IV contrast: None. Reconstruct ions: Coronal and sagittal. In accordance with CT protocol optimization, one or more of the following dose reduction techniques w ere utilized for this exam: automated exposure control, adjustment of mA and/or KV based on patient s ize, or use of iterative reconstructive technique. FINDINGS: Lungs/Pleura: Nodular airspace consolidation seen throughout the left lower lobe. The right lung is c lear. No pleural effusion or pneumothorax. Mediastinum: Normal. No adenopathy or masses. The heart and great vessels are normal. Bones: Unremarkable. Visualized Abdomen: Unremarkable. Other: None. IMPRESSION: Left lower lobe airspace disease most likely secondary to pneumonia. [facility] Referring Provider Line: [phone] SITE ID: [id number]
--- NOTE | 2017-09-10 22:57 | CT Preliminary Report ---
Exam: CT CHEST W/O IMPRESSION: Left lower lobe airspace disease most likely secondary to pneumonia. [facility] SITE ID: [id number]
[2017-09-10] MEDS ORDERED: ALBUTEROL NEB 2.5 MG/3 ML INH STA (22:59)
[2017-09-10] MEDS ORDERED: cefTRIAXone 1 GM in SODIUM CHLORIDE 0.9% MINIBAG 100 ML IV STA (23:14)
[2017-09-10] MEDS ORDERED: FAMOTIDINE 20 MG/50 ML 50 ML IV ONE (23:14)
[2017-09-10] MEDS ORDERED: DEXAMETHASONE 10 MG/ML VIAL IVP STA (23:19)
[2017-09-10] MEDS ORDERED: ACETAMINOPHEN 325 MG TABLET PO PRN (23:33)
[2017-09-10] MEDS ORDERED: TEMAZEPAM 15 MG CAPSULE PO PRN (23:33)
[2017-09-10] MEDS ORDERED: PROCHLORPERAZINE 10 MG/2 ML VIAL IVP PRN (23:33)
[2017-09-11] MEDS: SODIUM CHLORIDE FLUSH 0.9% 10 ML SYRINGE IVP SCH ×5 (00:21→20:45)
[2017-09-11] MEDS: SODIUM CHLORIDE FLUSH 0.9% 10 ML SYRINGE ONE ×2 (00:48→06:41)
[2017-09-11] MEDS: AMPICILLIN/SULBACTAM 3 GM in SODIUM CHLORIDE 0.9% MINIBAG 100 ML IV SCH ×4 (00:48→20:44)
--- NOTE | 2017-09-11 01:47 | HISTORY & PHYSICAL EXAMINATION ---
Chief Complaint - Chief Complaint Chief Complaint: Choking/ shortness of breath History of Present Illness - Admitted From Admitted From:: Home - History Obtained From History obtained from: Er Physician, Pt, - History of Present Illness HPI Comment/Other: Mr. Jules Hudson Junior is a pleasant 77-year-old gentleman who has a history of atrial fibrillation. Tonight the patient was eating a peanut butter sandwich and experienced a choking event in which she became syncopal. His family called 911 and was directed to perform the Heimlich maneuver which was eventually successful. The patient was brought into the hospital emergency department for evaluation and treatment where it was found that he was in atrial fibrillation with rapid ventricular response. This is slowly return to his baseline however chest x-ray found a large left lower lung aspiration. The patient is otherwise asymptomatic at this time. History - Past Medical History Cardiovascular: reports: Hypertension, Atrial fibrillation Respiratory: reports: None Neuro: reports: CVA Endocrine/Autoimmune: reports: None GI: reports: Other : reports: Frequency HEENT: reports: Chronic hearing loss Psych: reports: None Derm: reports: None MRSA Hx?: No - Past Surgical History Cardiovascular: reports: Other HEENT: reports: Other (Laryngeal surgery for cancer, L endardarectomy) - Family & Social History Family History: Mother: (Daughter from breast cancer), Alzheimer' s Disease, Father: , CVA/TIA, [place], Other family: , Cancer Living arrangement: At home Living Situation: With spouse/s.o. - Substance History Use: Uses substance without health or social issues: NONE Abuse: Recurrent use of substance despite neg consequences: NONE Dependence: Experiences withdrawal or developed tolerances: NONE - POLST Patient has POLST: Yes POLST Status: DNR Meds/Allgy - Home Medications Home Medications: Ambulatory Orders Medication Instructions Recorded Confirmed Cholecalciferol (Vitamin D3) 1,000 units ORAL DAILY 08/27/16 05/07/17 [Vitamin D3] Atorvastatin Calcium 40 mg PO DAILY 09/18/16 05/07/17 Metoprolol Tartrate 12.5 ng PO BID 09/18/16 05/07/17 Dabigatran Etexilate Mesylate 110 mg PO BID 05/07/17 05/07/17 [Pradaxa] Meclizine [Antivert] 25 mg PO Q6H #10 tablet 05/07/17 - Allergies Allergies/Adverse Reactions: Allergies Allergy/AdvReac Type Severity Reaction Status Date / Time Penicillins Allergy Unknown Verified 08/27/16 21:28 Review of Systems - Constitutional Constitutional: denies: Fatigue, Fever, Chills, Malaise - Eyes Eyes: denies: Pain, Irritation, Amaurosis, Blurred vision - Ears, Nose & Throat Ears, Nose & Throat: reports: Vertigo. denies: Ear pain, Hearing loss, Hearing aids, Tinnitus, Nasal pain, Nasal discharge - Cardiovascular Cariovascular: reports: Irregular heart rate. denies: Palpitations, Chest pain , Edema, Syncope - Respiratory Respiratory: reports: Cough, SOB with exertion. denies: Sputum production, Wheezing, Snoring, Hemoptysis - Gastrointestinal Gastrointestinal: denies: Abdominal pain, Abdominal distention, Constipation, Diarrhea, Change in bowel habits, Rectal bleeding - Genitourinary Genitourinary: denies: Dysuria, Frequency, Urgency, Hematuria - Musculoskeletal Musculoskeletal: denies: Muscle pain, Back pain, Muscle aches, Stiffness - Integumentary Integumentary: denies: Rash, Pruritis, Lesions, Dryness - Neurological Neurological: denies: General weakness, Focal weakness, Headache, Dizziness - Psychiatric Psychiatric: denies: Depression, Anxiety, Suicidal, Delusions, Hallucinations - Endocrine Endocrine: denies: Polyuria, Polydypsia, Polyphagia - Hematologic/Lymphatic Hematologic/Lymphatic: denies: Anemia, Bruising, Petechiae - All Other Systems All Other Systems: reports: Reviewed and negative Exam - Vital Signs Reviewed Vital Signs: Yes Vital Signs: Vital Signs x48h Temp Pulse Pulse Resp BP BP Pulse Ox 09/11/17 00:15 36.5 C 101 H 20 123/60 100 09/10/17 23:56 128 H 22 129/62 100 09/10/17 23:36 121 H 18 126/69 100 - Physical Exam General Appearance: positive: No acute distress, Alert. negative: Anxious Eyes Bilateral: positive: Normal inspection, PERRL, EOMI, No lid inflammation, Conjunctivae nml, No scleral icterus ENT: positive: ENT inspection nml, Pharynx nml, No signs of dehydration. negative: Oral lesions Neck: positive: Nml inspection, Thyroid nml, No JVD, Trachea midline, Thyromegaly Respiratory: positive: Chest non-tender, No respiratory distress, Breath sounds nml. negative: Wheezes, Rales, Rhonchi Cardiovascular: positive: No murmur, No gallop, Irregularly irregular, Extrasystoles Peripheral Pulses: positive: 1+ Abdomen: positive: Non-tender, No organomegaly, Nml bowel sounds, No distention. negative: Guarding, Rebound Back: positive: Nml inspection. negative: CVA tenderness (R), CVA tenderness (L ) Skin: positive: Color nml, No rash, Warm, Dry. negative: Cyanosis Extremities: positive: Non-tender, Full ROM, Nml appearance Neurologic/Psychiatric: positive: Oriented x3, CN's nml (2-12), Motor nml, Sensation nml, Mood/affect nml Conclusion/Plan - Problem List (1) Aspiration pneumonia Conclusion/Plan: The patient has aspirated in the large amount of aspirant is seen in his left lower lung. We will start the patient on ampicillin and sulbactam, and obtain a swallow study as the patient has a history of both laryngeal cancer and CVA. We will give the patient supplemental oxygen and nebulizer treatments as needed. Qualifiers: Aspiration pneumonia type: due to vomit Laterality: left Lung location: lower lobe of lung Qualified Code(s): J69.0 - Pneumonitis due to inhalation of food and vomit (2) History of laryngeal cancer Conclusion/Plan: Patient has undergone surgery for laryngeal cancer in 2006. There is no evidence of recurrence of the cancer at this time. (3) Cerebrovascular accident (CVA) Conclusion/Plan: The patient had a CVA last year but has been eating regular food since that time. The patient's daughter noted that he had another choking event several weeks ago. Qualifiers: CVA mechanism: unspecified Qualified Code(s): I63.9 - Cerebral infarction, unspecified (4) Chronic atrial fibrillation with rapid ventricular response Conclusion/Plan: The patient's heart rate has come down since his syncopal/hypoxic event earlier today. We will continue the patient on Pradaxa and metoprolol for rate control. - Lab Results Lab results reviewed: Yes Fish Bones: 09/10/17 21:55 09/10/17 21:55 - Diagnostic Imaging Results Diagnostic Imaging Results: positive: Final report reviewed Diagnostic Imaging Results Comments: EXAM: [id number] CT/CHTWO ([id number]) EXAM: CT CHEST EXAM DATE: 09/10/2017 10:28 PM. CLINICAL HISTORY: Choking episode and had chest compressions/Heimlic. COMPARISONS: 10/24/2007 chest x-ray. TECHNIQUE: Routine helical CT imaging was performed through the chest. IV contrast: None. Reconstructions: Coronal and sagittal. In accordance with CT protocol optimization, one or more of the following dose reduction techniques were utilized for this exam: automated exposure control, adjustment of mA and/or KV based on patient size, or use of iterative reconstructive technique. FINDINGS: Lungs/Pleura: Nodular airspace consolidation seen throughout the left lower lobe. The right lung is clear. No pleural effusion or pneumothorax. Mediastinum: Normal. No adenopathy or masses. The heart and great vessels are normal. Bones: Unremarkable. Visualized Abdomen: Unremarkable. Other: None. IMPRESSION: Left lower lobe airspace disease most likely secondary to pneumonia. Core Measures - Anticipated LOS I expect patient to be DC'd or transferred within 96 hours.: Yes - DVT/VTE - Prophylaxis VTE/DVT Device ordered at admit?: Yes
[2017-09-11] MEDS: SODIUM CHLORIDE FLUSH 0.9% 10 ML SYRINGE IVP PRN (06:41)
[2017-09-11] MEDS ORDERED: DABIGATRAN ETEXILATE MESYLATE 110 MG PO SCH (09:00)
[2017-09-11] MEDS: ATORVASTATIN 40 MG TABLET PO SCH (09:14)
[2017-09-11] MEDS: METOPROLOL TARTRATE 25 MG TABLET PO SCH ×2 (09:14→20:45)
[2017-09-11] MEDS: DABIGATRAN ETEXILATE MESYLATE 110 MG PO SCH ×2 (09:18→17:37)
[2017-09-11] MEDS: POLYETHYLENE GLYCOL 3350 17 GM PACKET PO SCH (09:18)
[2017-09-11] MEDS: CHOLECALCIFEROL 1,000 UNIT TABLET PO SCH (09:19)
[2017-09-11 11:41] LABS: BASOPHILS % (AUTO) 0.2 %; HGB - HEMOGLOBIN 11.8 g/dL (14.0-18.0); LYMPHOCYTES # (AUTO) 0.7 10^3/uL (1.5-3.5); LYMPHOCYTES % (AUTO) 9.4 %; MEAN CORPUSCULAR HEMOGLOBIN 29.3 pg (27.0-31.0); MEAN CORPUSCULAR HGB CONC 33.3 g/dL (32.0-36.0); MEAN CORPUSCULAR VOLUME 88.1 fL (80.0-94.0); MEAN PLATELET VOLUME 6.7 fL (7.4-11.4); MONOCYTES # (AUTO) 0.4 10^3/uL (0.0-1.0); MONOCYTES % (AUTO) 5.5 %; NEUTROPHILS # (AUTO) 6.7 10^3/uL (1.5-6.6); NEUTROPHILS % (AUTO) 84.9 %; PLT - PLATELET COUNT 232 10^3/uL (130-450); RED BLOOD COUNT 4.03 10^6/uL (4.70-6.10); RED CELL DISTRIBUTION WIDTH 14.2 % (12.0-15.0); WHITE BLOOD COUNT 7.9 x10^3/uL (4.8-10.8)
[2017-09-11 11:52] LABS: CALCIUM 9.2 mg/dL (8.5-10.3); CREATININE 0.9 mg/dL (0.6-1.2)
--- NOTE | 2017-09-11 14:50 | PROVIDER PROGRESS NOTE ---
Subjective - Prog Note Date Prog Note Date: 09/11/17 - Subjective Pt reports feeling: Improved Subjective: pt report he feel great, no cough, fever, chill, SOB, CP. pt tolerate regular diet Current Medications - Current Medications Current Medications: Active Medications Acetaminophen (Tylenol) 650 mg PO Q4HR PRN PRN Reason: Pain 1 to 4 Atorvastatin Calcium (Lipitor) 40 mg PO DAILY [facility] Last Admin: 09/11/17 09:14 Dose: 40 mg Cholecalciferol (Vitamin D3) 1,000 unit PO DAILY [facility] Last Admin: 09/11/17 09:19 Dose: 1,000 unit Ampicillin Sodium/Sulbactam (Sodium 3 gm/ Sodium Chloride) 100 mls @ 200 mls/ hr IV Q6H [facility] Last Infusion: 09/11/17 13:20 Dose: Infused Metoprolol Tartrate (Lopressor) 12.5 mg PO BID [facility] Last Admin: 09/11/17 09:14 Dose: 12.5 mg Dabigatran Etexilate Mesylate [Pradaxa] 110 Mg 1 each PO BIDWM [facility] Last Admin: 09/11/17 09:18 Dose: 1 each Polyethylene Glycol (Miralax) 17 gm PO DAILY [facility] Last Admin: 09/11/17 09:18 Dose: Not Given Prochlorperazine Edisylate (Compazine Inj) 10 mg IVP Q6HR PRN PRN Reason: Nausea / Vomiting Sodium Chloride (Normal Saline Flush 0.9%) 10 ml IVP PRN PRN PRN Reason: NEEDED PER PROVIDER ORDERS Last Admin: 09/11/17 06:41 Dose: 10 ml Sodium Chloride (Normal Saline Flush 0.9%) 10 ml IVP 0100,0900,1700 [facility] Last Admin: 09/11/17 12:29 Dose: 20 ml Temazepam (Restoril) 15 mg PO QPM PRN PRN Reason: Insomnia Cholecalciferol (Vitamin D3) [Vitamin D3] 5,000 units ORAL DAILY 08/27/16 Atorvastatin Calcium 40 mg PO DAILY 09/18/16 Metoprolol Tartrate 12.5 mg PO BID 09/18/16 Dabigatran Etexilate Mesylate [Pradaxa] 110 mg PO BID 05/07/17 Meclizine HCl [Travel-Ease] 25 mg PO TID PRN 09/11/17 Ubidecarenone [Co Q-10] 100 mg PO DAILY 09/11/17 Objective - Vital Signs/Intake & Output Reviewed Vital Signs: Yes Vital Signs: Vital Signs x48h Temp Pulse Resp BP BP Pulse Ox 09/11/17 09:14 115/53 L 09/11/17 08:00 36.6 C 88 16 131/71 H 93 Intake & Output: Intake & Output 09/08/17 09/09/17 09/10/17 09/11/17 23:59 23:59 23:59 23:59 Intake Total 100 1830 Output Total 900 Balance 100 930 - Objective General Appearance: positive: No acute distress, Alert. negative: Lethargic Eyes Bilateral: positive: Normal inspection, PERRL, No lid inflammation, Conjunctivae nml ENT: positive: ENT inspection nml, Pharynx nml, No signs of dehydration. negative: Purulent nasal drainage, Pharyngeal erythema, Oral lesions Neck: positive: Nml inspection, Thyroid nml, No JVD. negative: Thyromegaly, Lymphadenopathy (R), Lymphadenopathy (L), Stiff neck, Carotid bruit, Swelling/ bruising, Tracheal deviation Respiratory: positive: Chest non-tender, No respiratory distress, Breath sounds nml. negative: Wheezes, Rales, Rhonchi Cardiovascular: positive: Regular rate & rhythm, No murmur, No gallop. negative : Irregularly irregular, Extrasystoles, Tachycardia, Bradycardia, JVD present, Systolic murmur, Diastolic murmur Peripheral Pulses: 2+ Radial (R), 2+ Radial (L), 2+ Dorsalis pedis (R), 2+ Dorsalis pedis (L) Abdomen: positive: Non-tender, No organomegaly, Nml bowel sounds, No distention. negative: Tenderness, Guarding, Rebound Back: positive: Nml inspection. negative: CVA tenderness (R), CVA tenderness (L ) Skin: positive: Color nml, No rash, Warm, Dry. negative: Cyanosis, Diaphoresis , Pallor Extremities: positive: Non-tender, Full ROM, Nml appearance. negative: Pedal edema, Calf tenderness, Joint swelling, Era's sign/cords Neurologic/Psychiatric: positive: Oriented x3, Motor nml, Sensation nml, Mood/ affect nml. negative: Weakness, Sensory loss, Facial droop, Slurred/abnml speech, Depressed mood/affect - Lab Results Fish Bones: 09/11/17 11:38 09/11/17 11:38 Other Labs: Lab Results x24hrs 09/11/17 09/11/17 09/11/17 Range/Units 11:38 11:38 11:38 WBC (4.8-10.8) x10^3/uL RBC (4.70-6.10) 10^6/uL Hgb (14.0-18.0) g/dL Hct (42.0-52.0) % MCV (80.0-94.0) fL MCH (27.0-31.0) pg MCHC (32.0-36.0) g/dL RDW (12.0-15.0) % Plt Count (130-450) 10^3/uL MPV (7.4-11.4) fL Neut # (1.5-6.6) 10^3/uL Lymph # (1.5-3.5) 10^3/uL [place] # (0.0-1.0) 10^3/uL Eos # (0.0-0.7) 10^3/uL Baso # (0.0-0.1) 10^3/uL Absolute Nucleated RBC x10^3/uL Nucleated RBC % /100WBC Sodium 135 (135-145) mmol/L Potassium 3.7 (3.5-5.0) mmol/L Chloride 100 L (101-111) mmol/L Carbon Dioxide 28 (21-32) mmol/L Anion Gap 7.0 (6-13) BUN 19 (6-20) mg/dL Creatinine 0.9 (0.6-1.2) mg/dL Estimated GFR (MDRD) 82 L (>89) Glucose 172 H (70-100) mg/dL Calcium 9.2 (8.5-10.3) mg/dL Troponin I < 0.04 (<0.49) ng/mL B-Natriuretic Peptide 193 H (5-100) pg/mL 09/11/17 Range/Units 11:38 WBC 7.9 (4.8-10.8) x10^3/uL RBC 4.03 L (4.70-6.10) 10^6/uL Hgb 11.8 L (14.0-18.0) g/dL Hct 35.5 L (42.0-52.0) % MCV 88.1 (80.0-94.0) fL MCH 29.3 (27.0-31.0) pg MCHC 33.3 (32.0-36.0) g/dL RDW 14.2 (12.0-15.0) % Plt Count 232 (130-450) 10^3/uL MPV 6.7 L (7.4-11.4) fL Neut # 6.7 H (1.5-6.6) 10^3/uL Lymph # 0.7 L (1.5-3.5) 10^3/uL [place] # 0.4 (0.0-1.0) 10^3/uL Eos # 0.0 (0.0-0.7) 10^3/uL Baso # 0.0 (0.0-0.1) 10^3/uL Absolute Nucleated RBC 0.00 x10^3/uL Nucleated RBC % 0.0 /100WBC Sodium (135-145) mmol/L Potassium (3.5-5.0) mmol/L Chloride (101-111) mmol/L Carbon Dioxide (21-32) mmol/L Anion Gap (6-13) BUN (6-20) mg/dL Creatinine (0.6-1.2) mg/dL Estimated GFR (MDRD) (>89) Glucose (70-100) mg/dL Calcium (8.5-10.3) mg/dL Troponin I (<0.49) ng/mL B-Natriuretic Peptide (5-100) pg/mL ABX Reporting Has patient been on IV antibiotics over the past 48 hours?: Yes Assessment/Plan - Problem List (1) Aspiration pneumonia Impression: Conclusion/Plan: pt feel great, room air 98% sats, WBC is down to normal continue antibiotics continue lab and vital monitor, pt may be d/c tomorrow The patient has aspirated in the large amount of aspirant is seen in his left lower lung. We will start the patient on ampicillin and sulbactam, and obtain a swallow study as the patient has a history of both laryngeal cancer and CVA. We will give the patient supplemental oxygen and nebulizer treatments as needed. (2) History of laryngeal cancer Conclusion/Plan: ST evaluate pt, will will follow pt tolerate regular diet Patient has undergone surgery for laryngeal cancer in 2006. There is no evidence of recurrence of the cancer at this time. (3) Cerebrovascular accident (CVA) Conclusion/Plan: no new focus neurological deficit continue support The patient had a CVA last year but has been eating regular food since that time. The patient's daughter noted that he had another choking event several weeks ago. (4) Chronic atrial fibrillation with rapid ventricular response Conclusion/Plan: stable, continue metoprolol and Pradaxa The patient's heart rate has come down since his syncopal/hypoxic event earlier today. We will continue the patient on Pradaxa and metoprolol for rate control. Qualifiers: Aspiration pneumonia type: due to vomit Laterality: left Lung location: lower lobe of lung Qualified Code(s): J69.0 - Pneumonitis due to inhalation of food and vomit
[2017-09-11] MEDS ORDERED: DABIGATRAN 75 MG CAPSULE PO SCH ×2 (15:00)
[2017-09-12] MEDS: AMPICILLIN/SULBACTAM 3 GM in SODIUM CHLORIDE 0.9% MINIBAG 100 ML IV SCH ×2 (00:04→07:15)
[2017-09-12] MEDS: SODIUM CHLORIDE FLUSH 0.9% 10 ML SYRINGE IVP SCH (00:05)
[2017-09-12] MEDS: SODIUM CHLORIDE FLUSH 0.9% 10 ML SYRINGE IVP PRN ×2 (00:05→07:29)
[2017-09-12 05:12] LABS: BASOPHILS # (AUTO) 0.1 10^3/uL (0.0-0.1); BASOPHILS % (AUTO) 0.6 %; EOSINOPHILS # (AUTO) 0.1 10^3/uL (0.0-0.7); EOSINOPHILS % (AUTO) 1.3 %; HGB - HEMOGLOBIN 11.3 g/dL (14.0-18.0); LYMPHOCYTES # (AUTO) 1.4 10^3/uL (1.5-3.5); LYMPHOCYTES % (AUTO) 13.7 %; MEAN CORPUSCULAR HEMOGLOBIN 28.5 pg (27.0-31.0); MEAN CORPUSCULAR HGB CONC 32.1 g/dL (32.0-36.0); MEAN CORPUSCULAR VOLUME 88.8 fL (80.0-94.0); MEAN PLATELET VOLUME 7.2 fL (7.4-11.4); MONOCYTES # (AUTO) 0.7 10^3/uL (0.0-1.0); NEUTROPHILS # (AUTO) 7.7 10^3/uL (1.5-6.6); NEUTROPHILS % (AUTO) 77.4 %; PLT - PLATELET COUNT 235 10^3/uL (130-450); RED BLOOD COUNT 3.98 10^6/uL (4.70-6.10)
[2017-09-12 05:17] LABS: CALCIUM 9.1 mg/dL (8.5-10.3); CREATININE 0.9 mg/dL (0.6-1.2)
[2017-09-12] MEDS: DABIGATRAN ETEXILATE MESYLATE 110 MG PO SCH (07:57)
[2017-09-12] MEDS: METOPROLOL TARTRATE 25 MG TABLET PO SCH (09:18)
[2017-09-12] MEDS: CHOLECALCIFEROL 1,000 UNIT TABLET PO SCH (09:18)
[2017-09-12] MEDS: ATORVASTATIN 40 MG TABLET PO SCH (09:18)
[2017-09-12 09:20] VITALS: BP 146/68
[2017-09-12] MEDS: POLYETHYLENE GLYCOL 3350 17 GM PACKET PO SCH (09:33)
--- NOTE | 2017-09-12 10:43 | Discharge Plan ---
Discharge Plan Disposition: 01 Home, Self Care Condition: Stable Prescriptions: Amox/Clav 875/125 [Augmentin] 1 each PO Q12H #14 tablet Diet: Regular Activity Restrictions: Activity as Tolerated Shower Restrictions: No (caregiver closely monitor, fall precaution) Weight Bearing: Full Weight Instruction Topics: Amoxicillin Clavulanic Acid tablets, Aspiration About Ch, Pneumonia Prevent Additional Instructions or Follow Up instructions: you may follow up your PCP in one week, follow up ST's instruction for aspiration precaution to prevent any future choking incidents. You may have a modified barium swallow study to document your pharyngeal swallow status as outpatient basis. Should your symptoms return or worsen, you may present ER or call 911 for help. No Smoking: If you smoke, Please STOP! Call for help. Follow-up with: Marilyn Fitch MD [Primary Care Provider] -
--- NOTE | 2017-09-12 11:00 | DISCHARGE SUMMARY ---
Discharge Summary Discharge Date: 09/12/17 Discharging Provider: NASH Primary Care Provider: Dr. Fitch Condition at Discharge: Stable Discharge Disposition: 01 Home, Self Care Discharge Facility Name: home - DIAGNOSES Admission Diagnoses: (1) Aspiration pneumonia (2) History of laryngeal cancer (3) Cerebrovascular accident (CVA) (4) Chronic atrial fibrillation with rapid ventricular response Discharge Diagnoses with Status of Each Condition: (1) Aspiration pneumonia room air with 100% sats, no fever, chill, cough, normal WBC. pt is prescribed antibiotics to finish the antibiotics course. (2) History of laryngeal cancer stable (3) Cerebrovascular accident (CVA) stable (4) Chronic atrial fibrillation with rapid ventricular response stable - HPI History of Present Illness: refer from Dr. Kincaid's HPI for pt at 09/11/17 as the following: Mr. Jules Hudson Junior is a pleasant 77-year-old gentleman who has a history of atrial fibrillation. Tonight the patient was eating a peanut butter sandwich and experienced a choking event in which she became syncopal. His family called 911 and was directed to perform the Heimlich maneuver which was eventually successful. The patient was brought into the hospital emergency department for evaluation and treatment where it was found that he was in atrial fibrillation with rapid ventricular response. This is slowly return to his baseline however chest x-ray found a large left lower lung aspiration. The patient is otherwise asymptomatic at this time. - HOSPITAL COURSE Hospital Course: pt was admitted for aspiration pneumonia. Pt was treated with IV antibiotics. After treatment, pt present room air with 100% sats, no fever, chill, cough, normal WBC. pt is prescribed antibiotics to finish the antibiotics course. Pt was also consulted with ST. - ALLERGIES Allergies/Adverse Reactions: Allergies Allergy/AdvReac Type Severity Reaction Status Date / Time No Known Drug Allergies Allergy Verified 09/11/17 11:07 - MEDICATIONS Home Medications: Ambulatory Orders Medication Instructions Recorded Confirmed Cholecalciferol (Vitamin D3) 5,000 units ORAL DAILY 08/27/16 09/11/17 [Vitamin D3] Atorvastatin Calcium 40 mg PO DAILY 09/18/16 09/11/17 Metoprolol Tartrate 12.5 mg PO BID 09/18/16 09/11/17 Dabigatran Etexilate Mesylate 110 mg PO BID 05/07/17 09/11/17 [Pradaxa] Meclizine HCl [Travel-Ease] 25 mg PO TID PRN 09/11/17 09/11/17 Ubidecarenone [Co Q-10] 100 mg PO DAILY 09/11/17 09/11/17 Amox/Clav 875/125 [Augmentin] 1 each PO Q12H #14 tablet 09/12/17 - PHYSICAL EXAM AT DISCHARGE General Appearance: positive: No acute distress, Alert. negative: Lethargic Eyes Bilateral: positive: Normal inspection, PERRL, No lid inflammation, Conjunctivae nml ENT: positive: ENT inspection nml, Pharynx nml, No signs of dehydration. negative: Purulent nasal drainage, Pharyngeal erythema, Oral lesions Neck: positive: Nml inspection, Thyroid nml, No JVD, Trachea midline. negative : Thyromegaly, Lymphadenopathy (R), Lymphadenopathy (L), Stiff neck, Carotid bruit, Swelling/bruising, Tracheal deviation Respiratory: positive: Chest non-tender, No respiratory distress, Breath sounds nml. negative: Wheezes, Rales, Rhonchi Cardiovascular: positive: Regular rate & rhythm, No murmur, No gallop. negative : Irregularly irregular, Extrasystoles, Tachycardia, Bradycardia, JVD present, Systolic murmur, Diastolic murmur Peripheral Pulses: positive: 2+ Abdomen: positive: Non-tender, No organomegaly, Nml bowel sounds, No distention. negative: Tenderness, Guarding, Rebound Back: positive: Nml inspection. negative: CVA tenderness (R), CVA tenderness (L ) Skin: positive: Color nml, No rash, Warm, Dry. negative: Cyanosis, Diaphoresis , Pallor Extremities: positive: Non-tender, Full ROM, Nml appearance. negative: Calf tenderness, Joint swelling, Era's sign/cords Neurologic/Psychiatric: positive: Oriented x3, Motor nml, Sensation nml, Mood/ affect nml. negative: Weakness, Sensory loss, Facial droop, Slurred/abnml speech, Depressed mood/affect - LABS Result Diagrams: 09/12/17 04:56 09/12/17 04:56 - FOLLOW UP Follow Up: you may follow up your PCP in one week, follow up ST's instruction for aspiration precaution to prevent any future choking incidents. You may have a modified barium swallow study to document your pharyngeal swallow status as outpatient basis. Should your symptoms return or worsen, you may present ER or call 911 for help. - TIME SPENT Time Spent in Discharge (Minutes): 45
--- NOTE | 2017-09-13 06:50 | ADVANCE CARE PLANNING NOTE ---
Advance Care Planning - Date/Time Date: 09/10/17 Time: 22:00 - Purpose of encounter Text: I had a long discussion with the patient and his family regarding advanced directives. We identified goals of care and a POLST form was filled out by both the patient and myself.The patient has elected to have DO NOT RESUSCITATE status at this time. - Parties in attendance Parties in attendance: The patient, his , and [id number]. - Decisional capacity Decisional capacity of: The patient has full decision making capacity - Subjective/Patient's story Subjective/Patient's story: The patient has survived laryngeal cancer and a stroke last year but says that if his heart should stop eating he does not want to be resuscitated as he does not believe he has a good chance of coming off of the ventilator at this point in time. - Goals of Care Goals of care determinations: Goals of care at this time are to help the patient from his aspiration pneumonia and to prevent further aspiration pneumonias. - Plan Plan: Please see history and physical for any further plans or details - Code Status Code Status: Do Not Attempt Resuscitation - Time Spent on Advance Care Planning Time spent on advance care plannin minutes
== END 2017-09-12 11:45 | disposition home or self-care (01) | DRG 178 ==
LOC: EDUNIT# → ED 21:46 → MS3 23:33
PROVIDERS: ADMIT Hospitalist; ATTEND Nurse Practitioner Gerontology
DX: J69.0 Pneumonitis due to inhalation of food and vomit (principal); T17.828A Food in other parts of respiratory tract causing other injury, initial encounter; I48.2 Chronic atrial fibrillation; I10 Essential (primary) hypertension; R35.0 Frequency of micturition; H91.90 Unspecified hearing loss, unspecified ear; Z66 Do not resuscitate; X58.XXXA Exposure to other specified factors, initial encounter; Z79.899 Other long term (current) drug therapy; Z85.21 Personal history of malignant neoplasm of larynx; Z86.73 Personal history of transient ischemic attack (TIA), and cerebral infarction without residual deficits; Y93.89 Activity, other specified; Y99.8 Other external cause status
CPT/HCPCS: 36415; 71250; 80048; 80053; 83690; 83735; 83880; 84484; 85025; 93005; 94640; 96361; 96374; 96375; 96376; 99284

== ENCOUNTER 2017-10-19 14:42 | Outpatient (CLI) | payer MEDICARE, OTHER | END 2017-10-19 14:43 | disposition home or self-care (01) | LOC: LAB 14:42 | PROVIDERS: ATTEND Psychiatry & Neurology Neurology | DX: T88.7XXA Unspecified adverse effect of drug or medicament, initial encounter (principal) | CPT/HCPCS: 36415; 82565 ==

== ENCOUNTER 2018-09-05 11:47 | Outpatient (CLI) | payer MEDICARE, OTHER ==
--- NOTE | 2018-09-05 14:09 | XRAY Report ---
Reason: CHEST PAIN Procedure Date: 09/05/2018 Accession Number: [id number] / [id number] Procedure: WCP - Ribs w/PA Chest LT CPT Code: FULL RESULT: EXAM: LEFT RIB RADIOGRAPHY EXAM DATE: 09/05/2018 11:58 AM. CLINICAL HISTORY: Chest pain. COMPARISON: THORACIC SPINE 2 VIEW 04/27/2017 9:57 AM. TECHNIQUE: 1 view of the chest and 2 views of the ribs. FINDINGS: Bones: Normal. No fracture or bone lesion. Lungs: No focal opacities. No pneumothorax. No pleural effusions. Mediastinum: The cardiomediastinal silhouette is stable including calcifications of the aortic arch. Other: None. IMPRESSION: No displaced fracture is detected. RADIA
== END 2018-09-05 11:48 | disposition home or self-care (01) ==
LOC: DI.WCP 11:47
PROVIDERS: ATTEND Family Medicine
DX: R07.9 Chest pain, unspecified (principal)

== ENCOUNTER 2018-09-26 08:00 | Outpatient (CLI) | payer MEDICARE, OTHER ==
[2018-09-26 18:52] LABS: BASOPHILS % (AUTO) 0.7 %; EOSINOPHILS # (AUTO) 0.1 10^3/uL (0.0-0.7); EOSINOPHILS % (AUTO) 2.1 %; HGB - HEMOGLOBIN 12.4 g/dL (14.0-18.0); LYMPHOCYTES # (AUTO) 1.5 10^3/uL (1.5-3.5); LYMPHOCYTES % (AUTO) 21.5 %; MEAN CORPUSCULAR HEMOGLOBIN 29.8 pg (27.0-31.0); MEAN CORPUSCULAR HGB CONC 33.3 g/dL (32.0-36.0); MEAN CORPUSCULAR VOLUME 89.4 fL (80.0-94.0); MEAN PLATELET VOLUME 7.9 fL (7.4-11.4); MONOCYTES # (AUTO) 0.5 10^3/uL (0.0-1.0); NEUTROPHILS # (AUTO) 4.7 10^3/uL (1.5-6.6); NEUTROPHILS % (AUTO) 68.7 %; PLT - PLATELET COUNT 243 10^3/uL (130-450); RED BLOOD COUNT 4.15 10^6/uL (4.70-6.10); RED CELL DISTRIBUTION WIDTH 14.7 % (12.0-15.0); WHITE BLOOD COUNT 6.8 x10^3/uL (4.8-10.8)
[2018-09-26 19:13] LABS: ALBUMIN 4.2 g/dL (3.2-5.5); ALBUMIN/GLOBULIN RATIO 1.2 (1.0-2.2); ALKALINE PHOSPHATASE 52 IU/L (42-121); ALT ALANINE AMINOTRANSFERASE 15 IU/L (10-60); AST ASPARTATE AMINOTRANSFERASE 24 IU/L (10-42); BILIRUBIN,TOTAL 0.8 mg/dL (0.2-1.0); BUN - BLOOD UREA NITROGEN 20 mg/dL (6-20); CALCIUM 9.7 mg/dL (8.5-10.3); CARBON DIOXIDE - CO2 29 mmol/L (21-32); CHLORIDE 102 mmol/L (101-111); CHOLESTEROL 150 mg/dL; CREATININE 0.9 mg/dL (0.6-1.2); GFR - MDRD 82 (>89); GLUCOSE 104 mg/dL (70-100); HDL CHOLESTEROL 75 mg/dL; LDL CHOLESTEROL,CALCULATED 63 mg/dL; LDL/HDL RATIO 0.8 (<3.6); SODIUM 139 mmol/L (135-145); TOTAL PROTEIN 7.7 g/dL (6.7-8.2); VLDL CHOLESTEROL 12 mg/dL
== END 2018-09-26 08:01 | disposition home or self-care (01) ==
LOC: LAB.WCP 08:00
PROVIDERS: ATTEND Family Medicine
DX: E87.1 Hypo-osmolality and hyponatremia (principal); E78.5 Hyperlipidemia, unspecified; R53.83 Other fatigue; E02 Subclinical iodine-deficiency hypothyroidism; D64.9 Anemia, unspecified
CPT/HCPCS: 36415; 80053; 80061; 83721; 84443; 85025

== ENCOUNTER 2018-11-03 17:50 | Outpatient (CLI) | payer MEDICARE, OTHER | END 2018-11-03 17:51 | disposition critical access hospital (66) | LOC: EMS 17:50 | PROVIDERS: ATTEND Surgery | DX: T17.920A Food in respiratory tract, part unspecified causing asphyxiation, initial encounter (principal); R07.81 Pleurodynia | CPT/HCPCS: A0425; A0427 ==

== ENCOUNTER 2018-11-03 18:07 | Emergency (ER) | payer MEDICARE, OTHER ==
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
[2018-11-03] MEDS ORDERED: METOPROLOL TARTRATE 50 MG TABLET PO STA (19:03)
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
[2018-11-03] MEDS ORDERED: HYDROcod/ACETAM 5/325 MG TABLET PO STA (20:36)
[2018-11-03] MEDS ORDERED: diltiaZEM INJ 5 MG/ML VIAL IVP STA (20:41)
[2018-11-03] MEDS ORDERED: oxyCODONE 5 MG TABLET PO STA (20:56)
[2018-11-03 22:09] VITALS: BP 147/66
== END 2018-11-03 22:10 | disposition home or self-care (01) ==
LOC: EDUNIT# → ED 18:07
DX: S20.212A Contusion of left front wall of thorax, initial encounter (principal); X58.XXXA Exposure to other specified factors, initial encounter; Y93.89 Activity, other specified; I48.91 Unspecified atrial fibrillation; I10 Essential (primary) hypertension; Z87.891 Personal history of nicotine dependence
CPT/HCPCS: 71101; 93005; 96374; 99284; A9270

== ENCOUNTER 2019-03-08 09:18 | Outpatient (CLI) | payer MEDICARE, OTHER ==
[2019-03-08 13:03] LABS: BASOPHILS % (AUTO) 0.8 %; EOSINOPHILS # (AUTO) 0.3 10^3/uL (0.0-0.7); EOSINOPHILS % (AUTO) 4.9 %; HGB - HEMOGLOBIN 11.8 g/dL (14.0-18.0); LYMPHOCYTES # (AUTO) 1.2 10^3/uL (1.5-3.5); LYMPHOCYTES % (AUTO) 22.8 %; MEAN CORPUSCULAR HEMOGLOBIN 28.4 pg (27.0-31.0); MEAN CORPUSCULAR HGB CONC 30.4 g/dL (32.0-36.0); MEAN CORPUSCULAR VOLUME 93.3 fL (80.0-94.0); MEAN PLATELET VOLUME 9.7 fL (7.4-11.4); MONOCYTES # (AUTO) 0.4 10^3/uL (0.0-1.0); MONOCYTES % (AUTO) 7.5 %; NEUTROPHILS # (AUTO) 3.4 10^3/uL (1.5-6.6); NEUTROPHILS % (AUTO) 63.8 %; PLT - PLATELET COUNT 236 10^3/uL (130-450); RED BLOOD COUNT 4.16 10^6/uL (4.70-6.10); RED CELL DISTRIBUTION WIDTH 14.1 % (12.0-15.0); WHITE BLOOD COUNT 5.3 x10^3/uL (4.8-10.8)
== END 2019-03-08 23:59 | disposition home or self-care (01) ==
LOC: LAB.N 09:18
PROVIDERS: ATTEND Family Medicine
DX: D64.9 Anemia, unspecified (principal)
CPT/HCPCS: 36415; 85025

== ENCOUNTER 2019-03-25 15:01 | Outpatient (CLI) | payer MEDICARE, OTHER | END 2019-03-25 15:02 | disposition short-term general hospital (02) | LOC: EMS 15:01 | PROVIDERS: ATTEND Surgery | DX: R55 Syncope and collapse (principal) | CPT/HCPCS: A0425; A0427; A0888 ==

== ENCOUNTER 2019-03-27 07:33 | Outpatient (CLI) | payer MEDICARE, OTHER | END 2019-03-27 07:34 | disposition short-term general hospital (02) | LOC: EMS 07:33 | PROVIDERS: ATTEND Surgery | DX: R53.1 Weakness (principal); R06.02 Shortness of breath | CPT/HCPCS: A0425; A0427 ==

== ENCOUNTER 2019-04-21 10:15 | Outpatient (CLI) | payer MEDICARE, OTHER ==
--- NOTE | 2019-04-21 15:52 | XRAY Report ---
Reason: pneumonia Procedure Date: 04/21/2019 Accession Number: [id number] / [id number] Procedure: XRN - Chest 2 View X-Ray CPT Code: 06697 Final Report FULL RESULT: EXAM: CHEST RADIOGRAPHY EXAM DATE: 04/21/2019 10:27 AM. CLINICAL HISTORY: Pneumonia. COMPARISON: RIBS W/PA CHEST LT 11/03/2018 7:52 PM. TECHNIQUE: 2 views. FINDINGS: Lungs/Pleura: No focal opacities evident. No pleural effusion. No pneumothorax. Normal volumes. Mediastinum: Heart and mediastinal contours are essentially unchanged including subtle calcifications of the aortic arch. Other: None. IMPRESSION: No acute cardiopulmonary abnormality. RADIA
== END 2019-04-21 10:16 | disposition home or self-care (01) ==
LOC: DI.N 10:15
PROVIDERS: ATTEND Family Medicine
DX: J18.9 Pneumonia, unspecified organism (principal)
CPT/HCPCS: 71046

== ENCOUNTER 2019-10-24 13:10 | Outpatient (CLI) | payer MEDICARE, OTHER | END 2019-10-24 13:11 | disposition short-term general hospital (02) | LOC: EMS 13:10 | PROVIDERS: ATTEND Surgery | DX: R55 Syncope and collapse (principal) | CPT/HCPCS: A0425; A0427; A0888 ==

== ENCOUNTER 2019-10-31 12:54 | Outpatient (CLI) | payer MEDICARE, OTHER ==
--- NOTE | 2019-10-31 15:27 | XRAY Report ---
PROCEDURE: Hip w/Pelvis 2-3V RT INDICATIONS: hip pain,right TECHNIQUE: AP pelvis with lateral view(s) of the right hip(s). COMPARISON: None. FINDINGS: Bones: No fractures or dislocations. Pelvic ring appears intact. No suspicious bony lesions. Ther e is moderate bilateral degenerative hip joint space narrowing. Soft tissues: The visualized bowel gas pattern is normal. No suspicious soft tissue calcifications. IMPRESSION: Bilateral osteophytic changes within the hips. Reviewed by: Kyung Jacobs MD on 10/31/2019 3:25 PM PDT Approved by: Kyung Jacobs MD on 10/31/2019 3:25 PM PDT Station ID: [id number]
== END 2019-10-31 12:55 | disposition home or self-care (01) ==
LOC: DI.N 12:54
PROVIDERS: ATTEND Family Medicine
DX: M16.0 Bilateral primary osteoarthritis of hip (principal)

== ENCOUNTER 2020-01-30 06:03 | Outpatient (CLI) | payer MEDICARE, OTHER | END 2020-01-30 06:04 | disposition EMS.NT | LOC: EMS 06:03 | PROVIDERS: ATTEND Surgery | DX: R23.1 Pallor (principal); R53.83 Other fatigue ==

== ENCOUNTER 2020-02-29 08:00 | Outpatient (CLI) | payer MEDICARE, OTHER ==
[2020-02-29 18:02] LABS: BASOPHILS % (AUTO) 0.4 %; EOSINOPHILS # (AUTO) 0.1 10^3/uL (0.0-0.7); EOSINOPHILS % (AUTO) 1.5 %; HGB - HEMOGLOBIN 12.8 g/dL (14.0-18.0); LYMPHOCYTES # (AUTO) 1.2 10^3/uL (1.5-3.5); LYMPHOCYTES % (AUTO) 17.2 %; MEAN CORPUSCULAR HEMOGLOBIN 30.2 pg (27.0-31.0); MEAN CORPUSCULAR HGB CONC 31.3 g/dL (32.0-36.0); MEAN CORPUSCULAR VOLUME 96.5 fL (80.0-94.0); MEAN PLATELET VOLUME 11.4 fL (7.4-11.4); MONOCYTES # (AUTO) 0.6 10^3/uL (0.0-1.0); MONOCYTES % (AUTO) 8.3 %; NEUTROPHILS % (AUTO) 72.3 %; PLT - PLATELET COUNT 225 10^3/uL (130-450); RED BLOOD COUNT 4.24 10^6/uL (4.70-6.10); RED CELL DISTRIBUTION WIDTH 14.2 % (12.0-15.0); WHITE BLOOD COUNT 6.9 x10^3/uL (4.8-10.8)
[2020-02-29 18:26] LABS: ALBUMIN 4.1 g/dL (3.2-5.5); ALBUMIN/GLOBULIN RATIO 1.1 (1.0-2.2); ALKALINE PHOSPHATASE 73 IU/L (42-121); ALT ALANINE AMINOTRANSFERASE 27 IU/L (10-60); AST ASPARTATE AMINOTRANSFERASE 31 IU/L (10-42); BILIRUBIN,TOTAL 0.5 mg/dL (0.2-1.0); BUN - BLOOD UREA NITROGEN 30 mg/dL (6-20); CALCIUM 9.8 mg/dL (8.5-10.3); CARBON DIOXIDE - CO2 33 mmol/L (21-32); CHLORIDE 99 mmol/L (101-111); CHOL/HDL RATIO 2.2 (<5.0); CHOLESTEROL 142 mg/dL; CREATININE 0.8 mg/dL (0.6-1.2); GLUCOSE 117 mg/dL (70-100); HDL CHOLESTEROL 65 mg/dL; LDL CHOLESTEROL,CALCULATED 52 mg/dL; LDL/HDL RATIO 0.8 (<3.6); SODIUM 139 mmol/L (135-145); TOTAL PROTEIN 7.7 g/dL (6.7-8.2); VLDL CHOLESTEROL 25 mg/dL
== END 2020-02-29 23:59 | disposition home or self-care (01) ==
LOC: LAB.WCP 08:00
PROVIDERS: ATTEND Physician Assistant Medical
DX: I10 Essential (primary) hypertension (principal); E78.5 Hyperlipidemia, unspecified
CPT/HCPCS: 36415; 80053; 80061; 83721; 84443; 85025

== ENCOUNTER 2020-09-09 08:00 | Outpatient (CLI) | payer MEDICARE, OTHER ==
[2020-09-09 18:09] LABS: BASOPHILS % (AUTO) 0.6 %; EOSINOPHILS # (AUTO) 0.1 10^3/uL (0.0-0.7); HCT - HEMATOCRIT 41.1 % (42.0-52.0); HGB - HEMOGLOBIN 12.9 g/dL (14.0-18.0); LYMPHOCYTES # (AUTO) 1.1 10^3/uL (1.5-3.5); MEAN CORPUSCULAR HEMOGLOBIN 30.6 pg (27.0-31.0); MEAN CORPUSCULAR HGB CONC 31.4 g/dL (32.0-36.0); MEAN CORPUSCULAR VOLUME 97.6 fL (80.0-94.0); MEAN PLATELET VOLUME 11.7 fL (7.4-11.4); MONOCYTES # (AUTO) 0.6 10^3/uL (0.0-1.0); MONOCYTES % (AUTO) 8.2 %; NEUTROPHILS # (AUTO) 4.9 10^3/uL (1.5-6.6); NEUTROPHILS % (AUTO) 73.1 %; PLT - PLATELET COUNT 200 10^3/uL (130-450); RED BLOOD COUNT 4.21 10^6/uL (4.70-6.10); RED CELL DISTRIBUTION WIDTH 13.6 % (12.0-15.0); WHITE BLOOD COUNT 6.7 x10^3/uL (4.8-10.8)
[2020-09-09 18:24] LABS: % IRON SATURATION 20 % (20-50); ALBUMIN 4.3 g/dL (3.2-5.5); ALBUMIN/GLOBULIN RATIO 1.3 (1.0-2.2); ALKALINE PHOSPHATASE 72 IU/L (42-121); ALT ALANINE AMINOTRANSFERASE 26 IU/L (10-60); AST ASPARTATE AMINOTRANSFERASE 33 IU/L (10-42); BILIRUBIN,TOTAL 0.5 mg/dL (0.2-1.0); BUN - BLOOD UREA NITROGEN 34 mg/dL (6-20); CALCIUM 9.5 mg/dL (8.5-10.3); CARBON DIOXIDE - CO2 31 mmol/L (21-32); CHLORIDE 99 mmol/L (101-111); CHOL/HDL RATIO 2.1 (<5.0); CHOLESTEROL 148 mg/dL; CREATININE 0.9 mg/dL (0.6-1.2); GFR - MDRD 81 (>89); GLUCOSE 98 mg/dL (70-100); HDL CHOLESTEROL 72 mg/dL; IRON 71 ug/dL (45-182); LDL CHOLESTEROL,CALCULATED 62 mg/dL; LDL/HDL RATIO 0.9 (<3.6); POTASSIUM 4.3 mmol/L (3.5-5.0); SODIUM 135 mmol/L (135-145); TOTAL IRON BINDING CAPACITY 354 ug/dL (250-450); TOTAL PROTEIN 7.6 g/dL (6.7-8.2); TRANSFERRIN 253 mg/dL (180-329); TRIGLYCERIDES 69 mg/dL; VLDL CHOLESTEROL 14 mg/dL
[2020-09-09 18:38] LABS: THYROID STIMULATING HORMONE 3.74 uIU/mL (0.34-5.60)
[2020-09-09 18:45] LABS: FERRITIN 56.1 ng/mL (23.9-336.2)
== END 2020-09-09 23:59 | disposition home or self-care (01) ==
LOC: LAB.WCP 08:00
PROVIDERS: ATTEND Family Medicine
DX: G40.909 Epilepsy, unspecified, not intractable, without status epilepticus (principal); E78.5 Hyperlipidemia, unspecified; D64.9 Anemia, unspecified
CPT/HCPCS: 36415; 80053; 80061; 82607; 82728; 83540; 83721; 84443; 84466; 85025

== ENCOUNTER 2021-06-20 13:51 | Outpatient (CLI) | payer MEDICARE, OTHER ==
--- NOTE | 2021-06-20 15:47 | XRAY Report ---
PROCEDURE: Lumbar Spine 2 View INDICATIONS: BACK PAIN TECHNIQUE: 3 views of the lumbar spine were acquired. COMPARISON: 04/27/2017. FINDINGS: Bones: 5 vru-jgu-tqafbyr vertebrae are present. There is grade 1 retrolisthesis at L1-2 and L2-3 le vels and grade 1 anterolisthesis of L4 on L5. Degenerative endplate changes and bilateral facet arthr osis throughout lumbar spine is seen more prominent at L4-5 and L3-4 levels.. No vertebral body comp ression fractures. No suspicious bony lesions. Soft tissues: Overlying bowel gas pattern is normal. No suspicious soft tissue calcifications. IMPRESSION: 1. No acute compression fracture. Grade 1 spondylolisthesis at L1-2, L2-3 and L4-5 levels as above. 2. Degenerative disc disease throughout lumbar spine. Reviewed by: Jacob Caputo MD on 06/20/2021 3:45 PM PST Approved by: Jacob Caputo MD on 06/20/2021 3:45 PM PST Station ID: [id number]
--- NOTE | 2021-06-20 18:40 | XRAY Report ---
PROCEDURE: Thoracic Spine 2 View, x-ray INDICATIONS: BACK PAIN TECHNIQUE: 3 views of the thoracic spine were acquired. COMPARISON: None. FINDINGS: Bones: No fractures or dislocations. No suspicious bony lesions. 12 pairs of ribs are noted, and a ppear intact where visualized. Soft tissues: No paravertebral stripe thickening. IMPRESSION: Unremarkable thoracic spine radiographs Reviewed by: Cricket Stewart MD on 06/20/2021 5:39 PM AKST Approved by: Cricket Stewart MD on 06/20/2021 5:39 PM AKST Station ID: [id number]
== END 2021-06-20 23:59 | disposition home or self-care (01) ==
LOC: DI.N 13:51
PROVIDERS: ATTEND Family Medicine
DX: M43.16 Spondylolisthesis, lumbar region (principal); M51.36 Other intervertebral disc degeneration, lumbar region; M47.816 Spondylosis without myelopathy or radiculopathy, lumbar region; M54.6 Pain in thoracic spine

== ENCOUNTER 2021-07-03 15:10 | Outpatient (CLI) | payer MEDICARE, OTHER ==
[2021-07-03 15:43] LABS: ALBUMIN 3.7 g/dL (3.2-5.5); ALBUMIN/GLOBULIN RATIO 1.2 (1.0-2.2); BILIRUBIN,TOTAL 0.5 mg/dL (0.2-1.0); CALCIUM 9.6 mg/dL (8.5-10.3); CREATININE 0.8 mg/dL (0.6-1.2); POTASSIUM 4.5 mmol/L (3.5-5.0); TOTAL PROTEIN 6.9 g/dL (6.7-8.2)
[2021-07-03] MEDS ORDERED: IOVERSOL 320 50 ML VIAL ONE (15:53)
[2021-07-03] MEDS ORDERED: IOVERSOL 320 100 ML VIAL IVP ONE ×2 (15:53→17:00)
--- NOTE | 2021-07-03 17:01 | CT Report ---
PROCEDURE: Abdomen/Pelvis W INDICATIONS: LEFT UPPER QUAD ABD PAIN CONTRAST: IV CONTRAST: Optiray 320 ml: 100 PO CONTRAST: *NO PO CONTRAST TECHNIQUE: After the administration of intravenous contrast, 5 mm thick sections acquired from the diaphragms to the symphysis. 5 mm thick coronal and sagittal reformats were acquired. For radiation dose reducti on, the following was used: automated exposure control, adjustment of mA and/or kV according to joey ent size. COMPARISON: None. FINDINGS: Image quality: Excellent. ABDOMEN: Lung bases: Ill-defined opacity at the left lung base. Heart size is normal. Three-vessel coronary ar roslyn calcifications. Solid organs: Liver and spleen are normal in size and enhancement. Hepatic cysts. Gallbladder is un remarkable. Biliary system is non dilated. Pancreas enhances normally. No adrenal nodules. Kidney s demonstrate normal size and enhancement, without hydronephrosis. Peritoneum and bowel: Percutaneous gastrostomy tube. Bowel loops demonstrate normal wall thickness a nd caliber. Prominent stool the colon. Appendix is not dilated. Possible small appendicolith. No free fluid or air. Nodes and vessels: No retroperitoneal or mesenteric adenopathy by size criteria. Aorta and inferior vena cava are normal in size. Severe plaque. Miscellaneous: Tiny umbilical hernia. PELVIS: Genitourinary: Bladder is decompressed. Miscellaneous: No inguinal hernias or adenopathy. Bones: No suspicious bony lesions. No vertebral body compression fractures. DDD. IMPRESSION: 1. No bowel obstruction. No free fluid. There is prominent stool the colon. 2. Mild opacity at the left lung base. This could be due to atelectasis or pneumonia. Reviewed by: Keaton Woods MD on 07/03/2021 4:00 PM AKCHRISTEN Approved by: Keaton Woods MD on 07/03/2021 4:00 PM AKDT Station ID: [id number]
== END 2021-07-03 15:11 | disposition home or self-care (01) ==
LOC: LAB 15:10 → DI 15:11
PROVIDERS: ATTEND Family Medicine
DX: R10.12 Left upper quadrant pain (principal); K94.23 Gastrostomy malfunction; R91.8 Other nonspecific abnormal finding of lung field
CPT/HCPCS: 36415; 74177; 80053; Q9967

== ENCOUNTER 2021-07-04 15:05 | Outpatient (CLI) | payer MEDICARE, OTHER ==
[2021-07-04 18:44] LABS: BASOPHILS % (AUTO) 0.5 %; EOSINOPHILS # (AUTO) 0.1 10^3/uL (0.0-0.7); EOSINOPHILS % (AUTO) 2.1 %; HCT - HEMATOCRIT 38.5 % (42.0-52.0); HGB - HEMOGLOBIN 12.1 g/dL (14.0-18.0); LYMPHOCYTES % (AUTO) 16.2 %; MEAN CORPUSCULAR HEMOGLOBIN 29.8 pg (27.0-31.0); MEAN CORPUSCULAR HGB CONC 31.4 g/dL (32.0-36.0); MEAN CORPUSCULAR VOLUME 94.8 fL (80.0-94.0); MEAN PLATELET VOLUME 11.3 fL (7.4-11.4); MONOCYTES # (AUTO) 0.5 10^3/uL (0.0-1.0); MONOCYTES % (AUTO) 7.6 %; NEUTROPHILS # (AUTO) 4.6 10^3/uL (1.5-6.6); NEUTROPHILS % (AUTO) 73.4 %; PLT - PLATELET COUNT 221 10^3/uL (130-450); RED BLOOD COUNT 4.06 10^6/uL (4.70-6.10); WHITE BLOOD COUNT 6.3 x10^3/uL (4.8-10.8)
[2021-07-04 19:03] LABS: ALBUMIN 3.8 g/dL (3.2-5.5); ALBUMIN/GLOBULIN RATIO 1.1 (1.0-2.2); BILIRUBIN,TOTAL 0.4 mg/dL (0.2-1.0); CALCIUM 9.6 mg/dL (8.5-10.3); CREATININE 0.8 mg/dL (0.6-1.2); POTASSIUM 4.4 mmol/L (3.5-5.0); TOTAL PROTEIN 7.2 g/dL (6.7-8.2)
== END 2021-07-04 15:06 | disposition home or self-care (01) ==
LOC: LAB.N 15:05
PROVIDERS: ATTEND Nurse Practitioner Family
DX: R10.12 Left upper quadrant pain (principal)
CPT/HCPCS: 36415; 80053; 83690; 85025

== ENCOUNTER 2021-07-05 10:21 | Outpatient (CLI) | payer MEDICARE, OTHER ==
--- NOTE | 2021-07-05 11:59 | XRAY Report ---
PROCEDURE: Chest 2 View X-Ray INDICATIONS: PNEUMONIA TECHNIQUE: 2 view(s) of the chest. COMPARISON: 04/21/2019, 11/04/2018, 09/05/2018 FINDINGS: Surgical changes and devices: None. Lungs and pleura: No pleural effusions or pneumothorax. Lungs are clear. Mediastinum: Mediastinal contours are normal. Heart size is normal. Bones and chest wall: No suspicious bony abnormalities. Age-appropriate degenerative changes are seen. Soft tissues appear unremarkable. IMPRESSION: No focal infiltrates are seen. Reviewed by: Ismael Cage MD on 07/05/2021 10:57 AM BRETT Approved by: Ismael Cage MD on 07/05/2021 10:57 AM BRETT Station ID: [id number]
== END 2021-07-05 10:22 | disposition home or self-care (01) ==
LOC: DI.N 10:21
PROVIDERS: ATTEND Family Medicine
DX: J18.9 Pneumonia, unspecified organism (principal)

== ENCOUNTER 2021-07-16 09:14 | Outpatient (CLI) | payer MEDICARE, OTHER ==
[2021-07-16 12:55] LABS: % IRON SATURATION 22 % (20-50); IRON 77 ug/dL (45-182); TOTAL IRON BINDING CAPACITY 349 ug/dL (250-450); TRANSFERRIN 249 mg/dL (180-329)
== END 2021-07-16 09:15 | disposition home or self-care (01) ==
LOC: LAB.N 09:14
PROVIDERS: ATTEND Nurse Practitioner Family
DX: G40.909 Epilepsy, unspecified, not intractable, without status epilepticus (principal); D64.9 Anemia, unspecified
CPT/HCPCS: 36415; 80177; 82728; 83540; 84466

== ENCOUNTER 2021-08-19 08:00 | Outpatient (CLI) | payer MEDICARE, OTHER | END 2021-08-19 23:59 | disposition home or self-care (01) | LOC: LAB 08:00 | PROVIDERS: ATTEND Nurse Practitioner Family | DX: K94.23 Gastrostomy malfunction (principal) | CPT/HCPCS: 87070; 87075 ==

== ENCOUNTER 2021-09-29 08:00 | Outpatient (CLI) | payer MEDICARE, OTHER ==
--- NOTE | 2021-09-30 09:13 | XRAY Report ---
PROCEDURE: Tib/Fib LT INDICATIONS: L LOWER LEG HEMATOMA TECHNIQUE: 2 views of the tibia and fibula were acquired. COMPARISON: None FINDINGS: Bones: No fractures or dislocations. No suspicious bony lesions. Soft tissues: No suspicious soft tissue calcifications or masses. No gross soft tissue mass identif ied. IMPRESSION: No visualized acute fracture or dislocation. However, occult injury cannot be excluded. Recommend ana rt interval imaging follow-up in 7-10 days as clinically indicated for additional evaluation. If conc yvonne persists for soft tissue mass, focal ultrasound or MRI is recommended. Reviewed by: Kyung Jacobs MD on 09/30/2021 9:12 AM PDT Approved by: Kyung Jacobs MD on 09/30/2021 9:12 AM PDT Station ID: [id number]
== END 2021-09-29 23:59 | disposition home or self-care (01) ==
LOC: DI.N 08:00
PROVIDERS: ATTEND Physician Assistant Medical
DX: M79.81 Nontraumatic hematoma of soft tissue (principal)

== ENCOUNTER 2021-10-24 07:05 | Outpatient (CLI) | payer MEDICARE, OTHER ==
[2021-10-24 12:14] LABS: BASOPHILS % (AUTO) 0.6 %; EOSINOPHILS # (AUTO) 0.1 10^3/uL (0.0-0.7); EOSINOPHILS % (AUTO) 1.6 %; HCT - HEMATOCRIT 39.5 % (42.0-52.0); HGB - HEMOGLOBIN 12.6 g/dL (14.0-18.0); LYMPHOCYTES % (AUTO) 19.9 %; MEAN CORPUSCULAR HEMOGLOBIN 30.7 pg (27.0-31.0); MEAN CORPUSCULAR HGB CONC 31.9 g/dL (32.0-36.0); MEAN CORPUSCULAR VOLUME 96.1 fL (80.0-94.0); MEAN PLATELET VOLUME 11.6 fL (7.4-11.4); MONOCYTES # (AUTO) 0.4 10^3/uL (0.0-1.0); MONOCYTES % (AUTO) 8.2 %; NEUTROPHILS # (AUTO) 3.5 10^3/uL (1.5-6.6); NEUTROPHILS % (AUTO) 69.5 %; PLT - PLATELET COUNT 200 10^3/uL (130-450); RED BLOOD COUNT 4.11 10^6/uL (4.70-6.10); RED CELL DISTRIBUTION WIDTH 13.8 % (12.0-15.0)
[2021-10-24 12:34] LABS: ALBUMIN/GLOBULIN RATIO 1.2 (1.0-2.2); CALCIUM 10.1 mg/dL (8.5-10.3); CREATININE 0.9 mg/dL (0.6-1.2); POTASSIUM 4.1 mmol/L (3.5-5.0); TOTAL PROTEIN 7.4 g/dL (6.7-8.2)
== END 2021-10-24 07:06 | disposition home or self-care (01) ==
LOC: LAB.N 07:05
PROVIDERS: ATTEND Nurse Practitioner Family
DX: G40.909 Epilepsy, unspecified, not intractable, without status epilepticus (principal); R42 Dizziness and giddiness; Z79.899 Other long term (current) drug therapy
CPT/HCPCS: 36415; 80053; 80177; 85025